=== PATIENT | female | born 1955 | race Caucasian/White ===

== ENCOUNTER → 2017-05-14 08:09 | Outpatient (CLI) | payer BC, SELFPAY ==
[2017-05-14 08:50] LABS: Absolute Lymphocyte Count 1.97 X10^3/ul (0.83-4.51); Absolute Neutrophil Count 2.8 X10^3/uL (2.0-7.7); Basophil# 0.02 X10^3/uL; Basophil% 0.4 % (0-1); Eosinophils% 3.5 % (0-5); Hematocrit 40.3 % (37-47); Hemoglobin 14.2 g/dl (12.0-15.0); Lymphocyte # 1.97 X10^3/ul (4.0); Lymphocyte % 34.9 % (19-41); Mean Corp Hgb Conc 35.2 g/gl (32-36); Mean Corpuscular Hgb 32.7 pg (27.0-32.0); Mean Corpuscular Volume 92.9 fL (81-99); Monocyte% 10.6 % (0-10); Neutrophil # 2.84 X10^3/uL (2.7-7.7); Neutrophil % 50.4 % (47-70); Platelet Count 184 K/mm3 (150-450); RBC Distribution Width CV 12.6 % (11.6-14.6); RBC Distribution Width SD 41.5 fl (35.1-43.9); Red Blood Count 4.34 M/mm3 (4.2-5.4); White Blood Count 5.6 K/mm3 (4.4-11.0)
[2017-05-14 08:51] LABS: POSITIVE COUNT NO; POSITIVE DIFFERENTIAL NO; POSITIVE MORPHOLOGY NO
[2017-05-14 09:45] LABS: ALB/GLOB Ratio 0.9 RATIO (0.9-2.4); AST(SGOT) 73 U/L (15-37); Alanine Aminotransfer ALT/SGPT 149 U/L (13-56); Albumin, Serum 3.4 g/dL (3.2-5.0); Alkaline Phosphatase 54 U/L (45-117); Anion Gap 7 (5-15); BUN 13 mg/dL (7-18); BUN/Creat Ratio 16.8 RATIO (10-20); Calcium,Total 9.3 mg/dL (8.5-10.1); Chloride 106 mmol/L (98-107); Cholesterol 158 mg/dL (200); Creatinine, Serum 0.77 mg/dL (0.55-1.02); EST Glomerular Filtration Rate 80 mL/min (>60); Est Glom Filt Rate - Afr Amer 97 mL/min (>60); Globulin 3.8 g/dL (2.2-4.2); Glucose 110 mg/dL (74-106); High Density Lipoprotein 55 mg/dL; Potassium 4.1 mmol/L (3.5-5.1); Protein, Total 7.2 g/dL (6.4-8.2); Sodium Level 140 mmol/L (136-145); Triglycerides 117 mg/dL; Very Low Density Lipoprotein 23 mg/dL (5-40)
== END ==
PROVIDERS: Family Provider Nurse Practitioner; PCP Nurse Practitioner; Visit Provider Nurse Practitioner
DX: Z12.31 Encounter for screening mammogram for malignant neoplasm of breast (principal); Z13.220 Encounter for screening for lipoid disorders; Z12.11 Encounter for screening for malignant neoplasm of colon; Z83.3 Family history of diabetes mellitus
CPT/HCPCS: 36415; 80053; 80061; 85025

== ENCOUNTER → 2017-05-21 12:24 | Outpatient (CLI) | payer BC, SELFPAY ==
--- NOTE | 2017-05-21 12:35 | HPBI_ITS ---
MAMMOGRAPHY - BILATERAL SCREENING REASON FOR EXAM: Female, 61 years old. Routine annual screening examination. PERTINENT HISTORY: Sister with breast cancer. TECHNIQUE: Digital bilateral breast marek (3D mammographic acquisition) in the CC and MLO projections. 2-D mediolateral oblique (MLO) and craniocaudad (CC) views of both breasts were obtained. CAD: Full Field Digital Mammography with Computer Added Detection was performed. COMPARISON: None. Baseline examination. FINDINGS: Breast Composition: The breasts are heterogeneously dense, which may obscure small masses. There are 3 densely calcified nodules in the deep mid medial portion of the left breast incomplete with calcified fibroadenomas. A focus of amorphous calcifications are seen in the deep upper medial portion of the right breast. A biopsy is recommended for further evaluation. No other significant abnormalities are identified. HPBI/SCREENING MAMM (CAD), BILAT IMPRESSION: Suspicious calcifications in the deep medial portion of the right breast as described. A biopsy is recommended. ASSESSMENT CATEGORY: BIRADS Category 4: Suspicious - Biopsy Should Be Considered. A letter regarding these results will be sent to the patient by the facility within 30 days. Approximately 10% of breast cancers are not detected by mammography. A normal mammogram should not delay biopsy of a clinically suspicious abnormality. [id number] Electronically Signed: Dean Jimenez MD at 10:03 EDT Tel [phone], Service support ,
== END ==
PROVIDERS: Family Provider Nurse Practitioner; PCP Nurse Practitioner; Visit Provider Nurse Practitioner
DX: R92.0 Mammographic microcalcification found on diagnostic imaging of breast (principal)
CPT/HCPCS: 77063; 77067

== ENCOUNTER → 2017-05-30 09:01 | Outpatient (CLI) | payer BC, SELFPAY ==
--- NOTE | 2017-05-30 09:02 | US_ITS ---
STUDY: ABDOMINAL ULTRASOUND - RIGHT UPPER QUADRANT REASON FOR VISIT: Female, 61 years old. Elevated liver enzymes. TECHNIQUE: Ultrasound evaluation of the right upper quadrant was performed with real-time and static mckeon-scale imaging. TECHNICAL QUALITY: Adequate. COMPARISON: None. FINDINGS: Liver: The liver measures 13.6 cm. There is increased echogenicity consistent with fatty infiltration. The bile ducts are within normal limits. There is hepatic color flow. The direction of portal flow is hepatopetal. There is no demonstrated mass lesion. Gallbladder: The patient is status post cholecystectomy. Common Bile Duct (C.B.D.): The common bile duct measures 5 mm. Pancreas: Normal size of the head, body and tail of the pancreas. There is normal echogenicity of the pancreas. There is no demonstrated pancreatic mass or cyst. Right Kidney: Normal size of the right kidney. The right kidney measures 10.5 cm. Normal renal cortex. There is a 1.1 x 0.9 cm simple cyst in the right kidney. There is a 3 mm nonobstructing right renal stone. There is no right hydronephrosis. US/Liver IMPRESSION: Fatty liver. No focal hepatic masses identified. 3 mm nonobstructing right renal stone. No hydronephrosis. Electronically Signed: Fidel Duval, at 16:52 EDT Tel , Service support ,
== END ==
PROVIDERS: Family Provider Nurse Practitioner; PCP Nurse Practitioner; Visit Provider Nurse Practitioner
DX: K76.0 Fatty (change of) liver, not elsewhere classified (principal); N20.0 Calculus of kidney; R74.8 Abnormal levels of other serum enzymes
CPT/HCPCS: 76705

== ENCOUNTER → 2017-06-02 10:37 | Outpatient (CLI) | payer BC, SELFPAY ==
--- NOTE | 2017-06-02 | BRBX_PTH ---
PATIENT: SANDER BISHOP LOC: [facility] U#:[id number] AGE/SX: 69/F ROOM: RE06/02/[address]: Dr. Scotty Hanson MD : 1955 BED: DIS: SPEC #: [id number] RECD: 06/02/17 13:46 STATUS: ALETHEA JW #: [id number] TRISTIN: 06/02/17 00:[address]: Scotty Hanson DEPT: SURGICAL PATHOLOGY RECD BY: Raghav Berg ENTERED: 06/02/17 13:46 SP TYPE: BREAST BX OTHR DR: MIKE Arroyo Tissues: Right breast, NOS Procedures: Surgery Specimen Level IV HEADER OPERATION: Right breast stereotactic biopsy PRE-OP DIAGNOSIS: Calcifications right breast upper inner TISSUE SUBMITTED: Right breast core biopsy ISCHEMIC TIME: 1 minute FIXATION TIME: 8 hours MICROSCOPIC DIAGNOSIS Right breast, upper inner calcification, stereotactic core biopsy: Hyalinized fibroadenoma with focal calcification. Negative for atypia or malignancy. LISANDRO:judith 06/03/17 COMMENT Correlation with clinical, radiologic findings and appropriate follow up are necessary. MICROSCOPIC DESCRIPTION Slides are reviewed. GROSS DESCRIPTION Received is one container labeled with the patient's name and not further designated. The specimen consists of multiple elongated fragments of sanchez-yellow fibroadipose tissue that in aggregate measure 4 x 3 x 0.3 cm. The entire specimen is submitted in two cassettes. / LISANDRO:judith 06/02/17 TC:1 CPT: 43920
--- NOTE | 2017-06-02 11:32 | OP.PCM_ITS ---
Problem List (1) Abnormal mammogram of right breast Status: Acute Report of Operation Date of Procedure: 06/02/17 Pre-Operative Diagnosis: Microcalcifications upper inner right breast Post-Operative Diagnosis: Same Surgery/Procedure Performed:: Stereotactic needle core biopsy upper inner right breast Description of Surgical Findings:: Timeout and informed consent was obtained. 61-year-old female was taken to the [facility] at room. Post prone on the table. Initially she was placed in a medial lateral view. The microcalcifications could not be readily identified. She was then placed in the cc view. The microcalcifications rapidly identified. Stereotactic images were obtained. Digital information was obtained on a single target site. The breast was prepped with Betadine. 1% lidocaine was used as a local anesthetic. A spinal needle was used to assist with penetration. A total of 10 cc was used. A small stab incision was created. An 8-gauge resolve needle was advanced to prefire depth. Prefire films were obtained demonstrating adequate localization. The device was fired. 6 cores were obtained. Specimen mammograms were obtained. 2 of the cores had microcalcifications clearly present. A marking clip was then left at the 12 o'clock position. She was released with advice. Pressure was held for hemostasis. Steri-Strips Telfa OpSite dressings applied. Blood loss was minimal. She tired procedure well. The specimens was submitted in formalin for analysis. Progress prognosis felt to be good. Scotty Hanson M.D., F.A.C.S. Type of Anesthesia:: Local
== END ==
PROVIDERS: Family Provider Nurse Practitioner; PCP Nurse Practitioner; Visit Provider Surgery
DX: D24.1 Benign neoplasm of right breast (principal); Z80.3 Family history of malignant neoplasm of breast
CPT/HCPCS: 19081; 88305; J7050

== ENCOUNTER → 2018-06-05 09:30 | Outpatient (CLI) | payer BC, SELFPAY ==
--- NOTE | 2018-06-05 09:32 | BI_ITS ---
MAMMOGRAPHY - BILATERAL SCREENING REASON FOR EXAM: Female, 62 years old. Routine annual screening examination. PERTINENT HISTORY: Sister with breast cancer. Remote right stereotactic breast biopsy. TECHNIQUE: Digital bilateral breast marek (3D mammographic acquisition) in the CC and MLO projections. 2-D mediolateral oblique (MLO) and craniocaudad (CC) views of both breasts were obtained. CAD: Full Field Digital Mammography with Computer Added Detection was performed. COMPARISON: Comparison is made with prior study of May 21, 2017. FINDINGS: Breast Composition: The breasts are heterogeneously dense, which may obscure small masses. There are no dominant masses or suspicious calcifications. Since prior study, the patient underwent a right stereotactic breast biopsy of the calcifications in the deep upper medial aspect of the right breast. The number of calcifications has decreased. Stable densely calcified nodules in the left breast suggestive of calcified fibroadenomas. No other significant abnormalities are identified. BI/SCREENING MAMM (CAD), BILAT IMPRESSION: Status post stereotactic breast biopsy of the cluster-like calcification in the upper medial aspect of the right breast. Yearly follow-up mammogram recommended. (A) ASSESSMENT CATEGORY: BIRADS Category 2: Benign. A letter regarding these results will be sent to the patient by the facility within 30 days. Approximately 10% of breast cancers are not detected by mammography. A normal mammogram should not delay biopsy of a clinically suspicious abnormality. [id number] Electronically Signed: Dean Jimenez, at 14:48 EDT , Service support ,
[2018-06-05 10:00] LABS: AST(SGOT) 17 U/L (15-37); Alanine Aminotransfer ALT/SGPT 23 U/L (13-56); Albumin, Serum 3.8 g/dL (3.2-5.0); Alkaline Phosphatase 55 U/L (45-117); Anion Gap 6 (5-15); BUN 17 mg/dL (7-18); BUN/Creat Ratio 22.3 RATIO (10-20); Calcium,Total 9.2 mg/dL (8.5-10.1); Chloride 107 mmol/L (98-107); Creatinine, Serum 0.76 mg/dL (0.55-1.02); EST Glomerular Filtration Rate 81 mL/min (>60); Est Glom Filt Rate - Afr Amer 99 mL/min (>60); Globulin 3.7 g/dL (2.2-4.2); Glucose 100 mg/dL (74-106); Potassium 3.9 mmol/L (3.5-5.1); Protein, Total 7.5 g/dL (6.4-8.2); Sodium Level 143 mmol/L (136-145)
[2018-06-06 13:45] LABS: AFP, Tumor Marker 3.6 ng/mL (0.0-8.3)
== END ==
PROVIDERS: Family Provider Nurse Practitioner; PCP Nurse Practitioner; Referring Provider Nurse Practitioner; Visit Provider Nurse Practitioner
DX: Z12.31 Encounter for screening mammogram for malignant neoplasm of breast (principal); Z80.3 Family history of malignant neoplasm of breast; K76.0 Fatty (change of) liver, not elsewhere classified
CPT/HCPCS: 36415; 77063; 77067; 80053; 82105

== ENCOUNTER → 2018-11-16 16:52 | Outpatient (CLI) | payer BC, SELFPAY ==
[2018-11-16 18:17] LABS: BUN 16 mg/dL (7-18); Creatinine, Serum 0.74 mg/dL (0.55-1.02); Glucose 95 mg/dL (74-106)
[2018-11-16 18:18] LABS: AST(SGOT) 19 U/L (15-37); Alanine Aminotransfer ALT/SGPT 23 U/L (13-56); Albumin, Serum 3.6 g/dL (3.2-5.0); Alkaline Phosphatase 54 U/L (45-117); Anion Gap 5 (5-15); BUN/Creat Ratio 21.5 RATIO (10-20); Calcium,Total 8.9 mg/dL (8.5-10.1); Chloride 107 mmol/L (98-107); EST Glomerular Filtration Rate 83 mL/min (>60); Est Glom Filt Rate - Afr Amer 101 mL/min (>60); Globulin 3.6 g/dL (2.2-4.2); Potassium 3.5 mmol/L (3.5-5.1); Protein, Total 7.2 g/dL (6.4-8.2); Sodium Level 141 mmol/L (136-145); T4 Free Direct 0.91 ng/dL (0.76-1.46); Thyroid Stim Hormone (TSH) 1.83 uIU/mL (0.358-3.74)
[2018-11-21 09:59] LABS: Anti-Thyroglobulin AB < 1.0 IU/mL (0.0-0.9); Thyroglobulin, Serum Qt. 17.1 ng/mL (1.5-38.5); Thyroid Peroxidase AB 9 IU/mL (0-34)
== END ==
PROVIDERS: Family Provider Family Medicine; PCP Family Medicine; Referring Provider Family Medicine; Visit Provider Family Medicine
DX: E01.0 Iodine-deficiency related diffuse (endemic) goiter (principal); K76.0 Fatty (change of) liver, not elsewhere classified
CPT/HCPCS: 36415; 80053; 84432; 84439; 84443; 86376; 86800

== ENCOUNTER → 2018-11-22 15:04 | Outpatient (CLI) | payer BC, SELFPAY ==
--- NOTE | 2018-11-22 15:11 | US_ITS ---
STUDY: THYROID ULTRASOUND REASON FOR EXAM: Female, 63 years old. Thyromegaly TECHNIQUE: Ultrasound evaluation of the thyroid was performed with real-time and static mckeon-scale imaging. COMPARISON: None. FINDINGS: RIGHT LOBE: The right lobe of the thyroid gland measures 4.1 x 1.3 x 1.4 cm. There is a homogeneous echotexture. There are no demonstrated solid, cystic or complex lesions. LEFT LOBE: The left lobe of the thyroid gland measures 5.0 x 1.9 x 1.7 cm. There is a homogeneous echotexture. 2.8 cm oval solid and cystic nodule in the left lobe for which ultrasound-guided biopsy is recommended. ISTHMUS: The isthmus measures 2 mm thick. . The regional lymph nodes are normal. US/Thyroid IMPRESSION: 2.8 cm dominant solid and cystic nodule in the left lobe for which ultrasound-guided biopsy is recommended. Electronically Signed: Yuri Beltrán MD at 9:15 EDT Tel , Service support ,
== END ==
PROVIDERS: Family Provider Family Medicine; PCP Family Medicine; Referring Provider Family Medicine; Visit Provider Family Medicine
DX: E01.0 Iodine-deficiency related diffuse (endemic) goiter (principal)
CPT/HCPCS: 76536

== ENCOUNTER → 2018-12-12 16:31 | Outpatient (CLI) | payer BC, SELFPAY ==
[2018-12-12 15:35] VITALS: BMI 25.8
== END ==
PROVIDERS: Family Provider Family Medicine; PCP Family Medicine; Referring Provider Surgery; Visit Provider Surgery
DX: R00.2 Palpitations (principal)

== ENCOUNTER → 2018-12-16 07:55 | Outpatient (CLI) | payer BC, SELFPAY ==
[2018-12-16 05:55] VITALS: BMI 25.8
--- NOTE | 2018-12-16 07:55 | ASPS_PTH ---
PATIENT: SANDER BISHOP LOC: [facility] U#:[id number] AGE/SX: 69/F ROOM: RE12/16/[address]: Dr. Scotty Hanson MD : 1955 BED: DIS: SPEC #: [id number] RECD: 12/18/18 07:38 STATUS: ALETHEA JW #: [id number] TRISTIN: 12/16/18 07:[address]: Scotty Hanson DEPT: CYTOLOGY RECD BY: Bhumi Abbasi ENTERED: 12/18/18 09:29 SP TYPE: ASPIRATION OTHR DR: Dr. Boyd Rocha MD Tissues: Thyroid gland, NOS Procedures: Special Stain Group II Cytology Other HEADER OPERATION: Left thyroid FNA PRE-OP DIAGNOSIS: Left thyroid nodule TISSUE SUBMITTED: Left thyroid 8 slides DIAGNOSIS CYTOLOGY Left thyroid nodule, FNA (smears): Atypical follicular cells of undetermined significance. Adequate for evaluation. SJ:judith 12/19/18 COMMENT Immediate cytologic evaluation to determine adequacy is not applicable. Correlation with clinical, radiologic findings and appropriate follow up are necessary. Case has been reviewed in consultation with Dr. Montanez who concurs with the above diagnosis. IDC:AM CYTOLOGY STUDY Slides are reviewed. CYTOLOGY GROSS Received are 8 smears labeled with the patient's name and designated per the requisition as left thyroid FNA. Submitted for staining. /CC:cc 12/18/18 TC:5 CPT: 83010
== END ==
PROVIDERS: Family Provider Family Medicine; PCP Family Medicine; Referring Provider Surgery; Visit Provider Surgery
DX: E04.1 Nontoxic single thyroid nodule (principal)
CPT/HCPCS: 88161; 88313

== ENCOUNTER 2019-03-05 08:44 | Observation (INO) | payer BC, SELFPAY ==
--- NOTE | 2018-12-22 01:31 | HP_ITS ---
ADDENDUM by Scotty Hanson MD on 12/27/18 at 1634 Addendum entered and electronically signed by Scotty Hanson MD 12/27/18 16:34: December 27, 2018 The patient has contacted the office. After thorough consideration she has elected to proceed with a total thyroidectomy. She is well aware that this will require lifelong thyroid replacement medication. She believes that it is more pertinent to proceed with a definitive one-time surgical procedure. Scotty Hanson M.D., F.A.C.S. Intake Chief Complaint: left thyroid FNA Allergies No Known Allergies Allergy (Verified 12/22/18 12:55) Medications calcium carb-magnesium oxide-vit D3 400 mg-167 mg-133 unit tablet 1 tab PO QDAY ea 05/30/17 [History Confirmed 12/22/18] mecobalamin (vitamin B12) 5,000 mcg disintegrating tablet 5,000 mcg PO QDAY ea 05/30/17 [History Confirmed 12/22/18] vitamin B complex tablet 1 tab PO QDAY 05/30/17 [History Confirmed 12/22/18] Assessment & Plan Problems 1. Left thyroid nodule E04.1 Plan - Scotty Hanson MD Today was a 30-minute [id number] consultative appointment. I described the final cytology of the left lobe nodule. In great detail we discussed the potential for a left thyroid lobectomy. We compared and contrasted that to a total thyroidectomy. She had an extensive amount of time to ask and have questions answered. We discussed potential operative risks including potential injury to recurrent laryngeal nerve or parathyroids. She understands that my recommendation at minimum is a left thyroid lobectomy and that would risk having to come back to surgery to do a completion right thyroid lobectomy. This would be in deference to a total thyroidectomy which that would mandate lifelong thyroid replacement. She will consider her treatment options. I have asked that she recontact us next week with a decision as to how she would like us to proceed even if it is without any surgery at all. I very much appreciate the kind opportunity of assisting with her surgical care Scotty Hanson MD, FACS 12/27/18 1634 <Electronically signed by Scotty bautista MD> Date _ Scotty Hanson MD cc: ~* Signed Intake Vital Signs 12/22/18 Height 5 ft 3.5 in 12/22/18 Weight: 146 lb 12/22/18 Body Mass Index (BMI) 25.4 12/22/18 Blood Pressure 186/81 H 12/22/18 Blood Pressure Location Rt brachial 12/22/18 Respiratory Rate 16 12/22/18 Pulse Rate 102 H 12/22/18 Pulse Source Monitor 12/22/18 Temperature 98.5 F 12/22/18 Pulse Ox 98 12/22/18 Oxygen Delivery Method room air Intake Visit Reasons: 1 W FU Chief Complaint: left thyroid FNA Marketing Segment Manager Required: No Is patient in pain?: No Allergies No Known Allergies Allergy (Verified 12/22/18 12:55) Medications calcium carb-magnesium oxide-vit D3 400 mg-167 mg-133 unit tablet 1 tab PO QDAY ea 05/30/17 [History Confirmed 12/22/18] mecobalamin (vitamin B12) 5,000 mcg disintegrating tablet 5,000 mcg PO QDAY ea 05/30/17 [History Confirmed 12/22/18] vitamin B complex tablet 1 tab PO QDAY 05/30/17 [History Confirmed 12/22/18] [facility] Medical History (Updated 12/12/18 @ 16:48 by Scotty Hanson MD) Left thyroid nodule (Acute) Arthritis (Acute) Elevated liver enzymes (Acute) Abnormal mammogram (Acute) Surgical History (Updated 12/16/18 @ 07:57 by Silvia Hammond) S/P cholecystectomy (Acute) Status post biopsy of thyroid gland (Acute ~12/2018) Family History (Updated 05/30/17 @ 08:19 by Barbara Emanuel) Mother Heart disease Father Kidney disease Sister Breast cancer Social History (Updated 12/22/18 @ 13:31 by Scotty Hanson MD) Smoking Status: Never smoker second hand exposure: No alcohol intake: never substance use type: does not use caffeine: Yes what type of physical activity do you participate in: none frequency: does not exercise seatbelt use: always HPI HPI HPI: SANDER BISHOP, is a 63 F who presents to the office today for HPI HPI Surgical H&P: Yes HPI: SANDER BISHOP, is a 63 F who presents to the office today for surgical follow-up status post ultrasound-guided fine needle aspiration left thyroid that are performed for her on December 16, 2018. She has a dominant 2.8 cm left thyroid nodule occupying the majority of the left lobe of the thyroid. Cytology demonstrates atypical follicular cells of undetermined significance. Her pre- interventional ultrasound did not demonstrate any nodules on the right Intake Visit Reasons: Thyroid Nodules Marketing Segment Manager Required: No Is patient in pain?: No Allergies No Known Allergies Allergy (Verified 12/12/18 15:36) Medications calcium carb-magnesium oxide-vit D3 400 mg-167 mg-133 unit tablet 1 tab PO QDAY ea 05/30/17 [History Confirmed 12/12/18] mecobalamin (vitamin B12) 5,000 mcg disintegrating tablet 5,000 mcg PO QDAY ea 05/30/17 [History Confirmed 12/12/18] vitamin B complex tablet 1 tab PO QDAY 05/30/17 [History Confirmed 12/12/18] PFSH Medical History Arthritis (Acute) Elevated liver enzymes (Acute) Abnormal mammogram (Acute) Surgical History S/P cholecystectomy (Acute) Family History Mother Heart disease Father Kidney disease Sister Breast cancer Social History (Updated 12/12/18 @ 16:51 by Scotty Hanson MD) Smoking Status: Never smoker second hand exposure: No alcohol intake: never substance use type: does not use caffeine: Yes what type of physical activity do you participate in: none frequency: does not exercise seatbelt use: always HPI HPI HPI: SANDER BISHOP, is a 63 F who presents to the office today for surgical consultation regarding a left thyroid nodule. The patient is referred by her primary care physician Dr Boyd Rocha and a written copy of my surgical consult recommendations will return to him This is a pleasant 63-year-old female. She is [place]. She presented to Dr. Boyd Rochaer on clinical exam was noted to have thyroid enlargement. Patient also notes that she knows that her sister has thyroid nodules. There is no complaint of thyroid cancer. The patient states that she has no pain or hoarseness. She claims that with talking she will get what feels like a tight fatigue. That is been ongoing for a year. Her weight is been steady. As of November 16, 2018 her TSH was 1.83 and free T4 0.91 with a thyroid peroxidase antibody at 9 and an anti-TG antibody at less than 1 and a thyroglobulin quantitative at 17.1 all which were normal. Thyroid ultrasound as noted below shows a 2.8 cm oval solid cystic nodule of the left thyroid with biopsy recommended [facility] [address] [place] [address] Thyroid MR#: [id number]:[id number] Name: SANDER BISHOP [facility] #:[id number] : 1955F 63 From: Yuri Beltrán MD PCP:Boyd Rocha MD Status:REG CLI Study:Thyroid Date of Exam:11/22/18 Exam#[id number] Ordering Dr: Boyd Rocha MD STUDY: THYROID ULTRASOUND REASON FOR EXAM: Female, 63 years old. Thyromegaly TECHNIQUE: Ultrasound evaluation of the thyroid was performed with real-time and static mckeon-scale imaging. COMPARISON: None. FINDINGS: RIGHT LOBE: The right lobe of the thyroid gland measures 4.1 x 1.3 x 1.4 cm. There is a homogeneous echotexture. There are no demonstrated solid, cystic or complex lesions. LEFT LOBE: The left lobe of the thyroid gland measures 5.0 x 1.9 x 1.7 cm. There is a homogeneous echotexture. 2.8 cm oval solid and cystic nodule in the left lobe for which ultrasound-guided biopsy is recommended. ISTHMUS: The isthmus measures 2 mm thick. . The regional lymph nodes are normal. US/Thyroid IMPRESSION: 2.8 cm dominant solid and cystic nodule in the left lobe for which ultrasound-guided biopsy is recommended. Electronically Signed: Yuri Beltrán MD at 9:15 EDT Tel , Service support , HPI HPI HPI: SANDER BISHOP, is a 63 F who presents to the office today for ROS General General: No weight change, appetite, fatigue, colon cancer, breast cancer or weakness HEENT HEENT: No difficulty swallowing, eye injury, eye surgery, swollen glands or hoarseness Endo Endocrine: No thyroid disease, diabetes mellitus, thyroid cancer, Hair loss, heat intolerance or cold intolerance Skin Skin: No rash or changing moles Breast Breast: No left breast lump, right breast lump, nipple discharge, breast pain, abnormal mammogram, abnormal US or breast enlargement Musc Musculoskeletal: No back problems, arthritis, rheumatoid arthritis, gout or joint pain Cardio Cardiovascular: No murmur, pacemaker, heart disease, atrial fibrillation, high blood pressure, heart attack, heart stent, palpitations, shortness of breat with exertion or chest pain Psych Psychiatric: No depression, anxiety or hearing voices Resp Respiratory: No shortness of breath, No sleep apnea, No cough, No COPD, No asthma, No emphysema, No wheezing Gastro Gastrointestinal: No abdominal pain, No nausea or vomiting, No diarrhea, No constipation, No blood in stool, No acid reflux, No hemorrhoids, No ulcers, No gallbladder problem, No black,tarry stools Ramos Hematologic: No blood thinners, No blood disorders, No bleeding, No anemia, No blood clots Neuro Neurologic: No system reviewed and no additional complaints, except as docu, No as per HPI, No abnormal walking, No abnormal hearing, No abnormal movements, No abnormal speech, No behavioral changes, No burning sensations, No confusion, No seizure-like activity, No unsteadiness, No dizziness, No localized weakness, No frequent falls, No headache(s), No lack of coordination, No loss of vision, No memory loss, No numbness, No other visual disturbances, No radiating pain, No restless legs, No sensory deficit, No fainting, No tingling, No tremor(s), No weakness, No other Exam Neck Carotids: normal carotid upstroke, no bruits Other: Enlargement of the left thyroid noted with swallowing. No cervical adenopathy, nontender [place] is negative Chest Chest palpation & inspection: normal inspection of the chest Breast Palpation: No nipple discharge Resp Effort & Inspection: normal respiratory effort Auscultation: clear to auscultation bilaterally Cardio Heart Sounds: no murmurs Other: Regular rate with occasional ectopic beat Assessment & Plan Problems 1. Left thyroid nodule E04.1 Plan The patient during my examination and interview suggested that she was having some palpitations and fluttering of her chest. She claims that this will frequently occur while she is trying to relax and fall asleep at night. I did detect occasional ectopic beat on auscultation. I recommended to her that we obtain a EKG prior to her departure. She was also noted to be mildly hypertensive. She has an upcoming appointment with Dr Boyd Rocha on December 16, 2018 and we will copy him on this note. Regarding her left thyroid nodule I recommend a ultrasound-guided fine-needle aspiration and I have discussed the technique, benefits, risks, alternatives. She has had an opportunity to ask and have questions answered. We will schedule and expedite this management. I very much appreciate the kind opportunity of assisting with her surgical care cc:Dr Boyd Hanson M.D., F.A.C.S. Orders Orders: EKG - SDC Today R00.2 Coding Level of Care Code 65483 Diagnoses Left thyroid nodule E04.1 12/12/181650<Electronically signed by Scotty Hanson MD> Date Scotty Hanson MD ROS General General: No weight change, appetite, fatigue, colon cancer, breast cancer or weakness HEENT HEENT: No difficulty swallowing, eye injury, eye surgery, swollen glands or hoarseness Endo Endocrine: No thyroid disease, diabetes mellitus, thyroid cancer, Hair loss, heat intolerance or cold intolerance Skin Skin: No rash or changing moles Breast Breast: No left breast lump, right breast lump, nipple discharge, breast pain, abnormal mammogram, abnormal US or breast enlargement Musc Musculoskeletal: No back problems, arthritis, rheumatoid arthritis, gout or joint pain Cardio Cardiovascular: No murmur, pacemaker, heart disease, atrial fibrillation, high blood pressure, heart attack, heart stent, palpitations, shortness of breat with exertion or chest pain Psych Psychiatric: No depression, anxiety or hearing voices Resp Respiratory: No shortness of breath, No sleep apnea, No cough, No COPD, No asthma, No emphysema, No wheezing Gastro Gastrointestinal: No abdominal pain, No nausea or vomiting, No diarrhea, No constipation, No blood in stool, No acid reflux, No hemorrhoids, No ulcers, No gallbladder problem, No black,tarry stools Ramos Hematologic: No blood thinners, No blood disorders, No bleeding, No anemia, No blood clots Neuro Neurologic: No weakness Exam Chest Breast Palpation: No nipple discharge Cardio Heart Sounds: no murmurs Assessment & Plan Problems 1. Left thyroid nodule E04.1 Plan Today was a 30-minute [id number]-tu-okqd consultative appointment. I described the final cytology of the left lobe nodule. In great detail we discussed the potential for a left thyroid lobectomy. We compared and contrasted that to a total thyroidectomy. She had an extensive amount of time to ask and have questions answered. We discussed potential operative risks including potential injury to recurrent laryngeal nerve or parathyroids. She understands that my recommendation at minimum is a left thyroid lobectomy and that would risk having to come back to surgery to do a completion right thyroid lobectomy. This would be in deference to a total thyroidectomy which that would mandate lifelong thyroid replacement. She will consider her treatment options. I have asked that she recontact us next week with a decision as to how she would like us to proceed even if it is without any surgery at all. I very much appreciate the kind opportunity of assisting with her surgical care Scotty Hanson MD, FACS Coding Level of Care Code Off vis,est,level 3 Diagnoses Left thyroid nodule E04.1 12/22/18 1331 <Electronically signed by Scotty bautista MD> Date _ Scotty Hanson MD I have re-examined the patient. There are no clinical changes since date of exam.
[2018-12-22 13:31] VITALS: BMI 25.8
[2019-01-29 15:24] VITALS: BMI 25.8
--- NOTE | 2019-02-28 09:29 | EKG12_ITS ---
Test Reason : PRE-OP Blood Pressure : / mmHG Vent. Rate : 076 BPM Atrial Rate : 076 BPM P-R Int : 112 ms QRS Dur : 092 ms QT Int : 388 ms P-R-T Axes : -27 040 060 degrees QTc Int : 436 ms Normal sinus rhythm Normal ECG Confirmed by LILLIAM SANCHEZ ([id number]), video tape editor SARAH WELDON ([id number]) on 02/28/2019 12:52:56 PM Referred By: Scotty Hanson Confirmed By:LILLIAM SANCHEZ
[2019-02-28 10:14] LABS: Hematocrit 41.5 % (37-47); Hemoglobin 14.3 g/dL (12.0-15.0); Mean Corp Hgb Conc 34.5 g/dL (32-36); Mean Corpuscular Hgb 31.6 pg (27.0-32.0); Mean Corpuscular Volume 91.8 fL (81-99); Mean Platelet Vol. 10.4 fl (6.2-12.0); Platelet Count 210 K/mm3 (150-450); RBC Distribution Width CV 12.3 % (11.6-14.6); RBC Distribution Width SD 41.9 fl (35.1-43.9); Red Blood Count 4.52 M/mm3 (4.2-5.4); White Blood Count 6.2 K/mm3 (4.4-11.0)
[2019-02-28 11:03] LABS: Anion Gap 6 (5-15); BUN 12 mg/dL (7-18); BUN/Creat Ratio 15.1 RATIO (10-20); Chloride 105 mmol/L (98-107); EST Glomerular Filtration Rate 77 mL/min (>60); Est Glom Filt Rate - Afr Amer 93 mL/min (>60); Glucose 105 mg/dL (74-106); Phosphorus 4.3 mg/dL (2.5-4.9); Potassium 3.7 mmol/L (3.5-5.1); Sodium Level 140 mmol/L (136-145)
[2019-03-05] VITALS (12 sets, daily range): BP systolic 140–168; BP diastolic 60–82; PULSE 63–76; RESP 15–17; TEMP 36.4–36.8; O2SAT 93–100; BMI 25.4
--- NOTE | 2019-03-05 | THYROID_PTH ---
PATIENT: SANDER BISHOP LOC: MS3 U#:[id number] AGE/SX: 63/F ROOM: MS321 RE03/05/[address]: Dr. Scotty Hanson MD : 1955 BED: 1 DIS: 03/06/2019 SPEC #: [id number] RECD: 03/05/19 12:10 STATUS: ALETHEA RERhonda #: [id number] TRISTIN: 03/05/19 00:[address]: Scotty Hanson DEPT: SURGICAL PATHOLOGY RECD BY: Raghav Berg ENTERED: 03/05/19 12:11 SP TYPE: THYROID OTHR DR: Dr. Boyd Rocha MD Tissues: Thyroid gland, NOS Procedures: Surgery Specimen Level V HEADER OPERATION: Total thyroidectomy PRE-OP DIAGNOSIS: Left thyroid nodule E04.1 TISSUE SUBMITTED: Total thyroid, suture herron anterior superior aspect of left lobe of thyroid MICROSCOPIC DIAGNOSIS Thyroid, total thyroidectomy: Colloid nodule with focal adenomatous change. Two out of two lymph nodes with no pathologic change. See comment. AM:judith 03/08/19 COMMENT Immunohistochemistry ([id number]) supports the above diagnosis. MICROSCOPIC DESCRIPTION Slides are reviewed. GROSS DESCRIPTION Received in fixative is one container labeled with the patient's name and designated total thyroid. The specimen consists of a total thyroidectomy specimen weighing 9 gm. The right lobe measures 3 x 2 x 1.2 cm and the left lobe measures 4 x 2 x 1.5 cm and the isthmus measures 1 x 1 x 0.3 cm. The specimen is oriented by a suture marking anterior-superior portion of the left thyroid lobe. No external parathyroid tissue is identified. The specimen is inked as follows: posterior surface right lobe, left lobe and isthmus - black, anterior surface right lobe - blue, anterior surface left lobe - green, anterior surface isthmus - yellow. Sections of the isthmus and right lobe do not reveal any mass lesion. Sections of the left lobe reveal a sanchez, solid nodule in the middle and lower portion of the left lobe measuring 2.5 x 2 x 1.3 cm. The entire specimen is submitted in nine cassettes as follows: 1 - isthmus, 2-4 - right lobe, 5-9 - left lobe. / LISANDRO:judith 03/06/19 TC:1 CPT: 16498
--- NOTE | 2019-03-05 | IMM_PTH ---
PATIENT: SANDER BISHOP LOC: MS3 U#:[id number] AGE/SX: 63/F ROOM: OR321 RE03/05/[address]: Dr. Scotty Hanson MD : 1955 BED: 1 DIS: 03/06/2019 SPEC #: [id number] RECD: 03/08/19 12:01 STATUS: ALETHEA REQ #: [id number] TRISTIN: 03/05/19 00:[address]: Scotty Hanson DEPT: IMMUNOHISTOCHEMISTRY RECD BY: Marietta José ENTERED: 03/08/19 12:02 SP TYPE: IMMUNO OTHR DR: Dr. Boyd Rocha MD Tissues: Thyroid gland, NOS Procedures: HBME (initial) CD56 (add) CK19 (add) GAL-3 (add) PHYSICIAN & INSTITUTION [place] [id number] SPECIMEN INFORMATION: Tissue Source: Total thyroid Clinical Info: Left thyroid nodule Specimen Number: [id number] #7 CPT code: 17963, 77244 x3 METHODOLOGY: Deparaffinized sections of prefer/formalin-fixed tissue or PAP/DQ stained slides are incubated with monoclonal/polyclonal antibodies/oligonucleotide probes. Localization is made via biotin free immunoperoxidase method. Appropriate controls are performed and reacted as expected. Results on target cell population are indicated in the following table: RESULTS: ANTIBODY / CLONE RESULT Block 7 HBME1 (HBME-1) negative CK19 (A53-B/A2.26) positive GAL3 (9C4) negative CD56 (123C3.D5) positive These tests were developed and their performance characteristics determined by [facility]. They may not have been cleared or approved by the U.S. Food and Drug Administration. The FDA has determined that such clearance or approval is not necessary. The above immunohistochemical/dualISH markers are ordered and reviewed by the Pathologist. INTERPRETATION: Thyroid, total thyroidectomy: Consistent with colloid nodule. AM:judith 03/09/19
[2019-03-05] MEDS: Lactated Ringers 1,000 ML 75 ML IV (05:57)
[2019-03-05] MEDS: Bupivacaine Mpf 0.5% 30 ML VIAL (08:36)
--- NOTE | 2019-03-05 08:40 | OP.PCM_ITS ---
Problem List (1) Left thyroid nodule Status: Acute Report of Operation Date of Procedure: 03/05/19 Pre-Operative Diagnosis: Atypical follicular lesion left thyroid Post-Operative Diagnosis: Same Surgery/Procedure Performed:: Total thyroidectomy Description of Surgical Findings:: Timeout and informed consent was obtained. 63-year-old female was taken to the operating placement table underwent general anesthesia. Clean case no antibiotics required. Head of bed was gently elevated. The neck was sterilely prepped and draped. A transverse suprasternal incision was created and sharp d issection carried down through the platysma. Platysmal flaps were raised. Strap muscles were incised vertically. The left lobe was addressed first. Blunt dissection was used and then harmonic scalpel was used for hemostasis. The superior pole the left lobe was carefully freed the superior pole vessels secured with harmonic scalpel. Then upon elevating the middle portion of the gland that is a large cystic solid lesion was able to be pulled up into the wound. Careful dissection was then performed upon the posterior aspect of the gland and the parathyroid inferiorly on the left was identified and protected. The course of the recurrent laryngeal nerve was identified and protected. The gland was dissected off the anterior surface of the trachea with harmonic scalpel. Attention was now drawn to the right lobe. Similar procedure was performed. The recurrent laryngeal nerve on the right was clearly identified and protected. Superior parathyroid on the right was identified and protected. The gland was completely resected off the anterior surface of the trachea. There is a little bit of tracheal tissue on the right that was close to the Dermotic that I secured with a 4-0 Vicryl [id number] suture. Everything was dry and intact. The wounds were irrigated. They were aspirated free. Palpation failed to reveal any masses or nodules. There was no gross adenopathy. Fibular was placed on each side of the neck. The strap muscles were approximated with simple 3-0 Vicryl sutures. The platysma was approximated with the same. The skin edges approximated opted 5-0 Vicryl subdermal stitches. The pau-incisional was anesthetized with 9 cc of 0.5% Marcaine. Surgical glue was applied followed by Telfa and tape dressings. Sponge and instrument and needle counts were reported to the surgeon to be correct. Specimen total thyroid with a suture marking the anterior superior aspect of the left lobe. Drains none. Blood loss minimal. Scotty Hanson M.D., F.A.C.S. Type of Anesthesia:: General Anesthesiologist: Sammie Charles
--- NOTE | 2019-03-05 08:40 | PCM.DC.GS ---
<Scotty Hanson - Last Filed: 03/05/19 08:40> Discharge Diet: Light diet - advance as tolerated - if you have questions about your diet instructions, please talk to you doctor. Discharge Activity: May Not Drive - for 1 week or while taking narcotic pain medicine. May shower in (days): 1 Lifting Restrictions: 10 pounds Call your doctor if your incision/area has: Continuous Slow Oozing, Sudden Increased Bleeding, Increased Pain/ Swelling, Increased Redness, Foul Smelling Discharge Call your doctor if you observe: Fever of 101 or Higher Suture Line Care: Avoid Pulling/Pushing, Avoid Pinching/Bending Additional Dressing/Incision Instructions:: Dressing may be removed on Tuesday and you may shower Allergies/Adverse Reactions: Allergies No Known Allergies Allergy (Verified 03/05/19 05:44) Medications to take at Discharge the A.G.E. pill 2 cap PO BID 01/29/19 Siel 2 cap PO BID 02/26/19 Hydrocodone Bitart/Apap 5-325 [[place] 5MG-325MG] 1 tab PO Q6H PRN PRN 2 Days #5 tab 03/05/19 Levothyroxine [Synthroid] 88 mcg PO DAILY #90 tab 03/05/19 Calcitriol [Rocaltrol] 0.25 mcg PO DAILY 7 Days #7 cap 03/06/19 The following prescriptions were given: Hydrocodone Bitart/Apap 5-325 [[place] 5MG-325MG] 1 tab PO Q6H PRN PRN 2 Days #5 tab PRN Reason: Pain Transmission Status: Received by [facility] Calcitriol [Rocaltrol] 0.25 mcg PO DAILY 7 Days #7 cap Transmission [facility]: [facility] Levothyroxine [Synthroid] 88 mcg PO DAILY #90 tab Transmission Status: [facility] Orders to be completed after discharge: 12 Lead EKG [CVS] Time Frame: 02/26/19, Facility: [facility], Location: Cardiovascular Services Basic Metabolic Profile (BMP) Time Frame: 02/26/19, Facility: [facility], Location: Laboratory CBC-Complete Blood Cnt No Diff Time Frame: 02/26/19, Facility: [facility], Location: Laboratory Phosphorus Time Frame: 02/26/19, Facility: [facility], Location: Laboratory Primary Care Physician: Boyd Rocha MD [Primary Care Provider] - Test Results: Test results from this visit will be discussed in further detail at your follow-up appointment, if applicable. Please Follow Up With: Scotty Hanson MD - [phone] When: Call to make an appointment to be seen in about 10 days. <Priscilla Christian - Last Filed: 03/06/19 07:11> Additional Instructions: Please take extra strength TUMs 2 tablets 3 times per day for 7 days Test Results: Test results from this visit will be discussed in further detail at your follow-up appointment, if applicable.
[2019-03-05] MEDS: 0.9% Saline Lock 10 ML Syringe IV (12:53)
[2019-03-05] MEDS: Ondansetron 4 MG/2 ML Vial IV (12:53)
[2019-03-05 16:15] LABS: Calcium,Total 8.4 mg/dL (8.5-10.1)
[2019-03-05] MEDS: Acetaminophen 325 MG Tablet 650 MG PO (17:17)
[2019-03-05] MEDS: Calcium Carbonate 500 MG Tablet 1000 MG PO (17:19)
--- NOTE | 2019-03-05 18:18 | PCM.PN.BLA ---
Progress Note Mild hypocalcemia, excellent clear voice Will treat with tums and rocaltrol and recheck in a.m. STROKE Vital Signs/Narrative: Vital Signs Temp Pulse Resp BP Pulse Ox 03/05/19 14:43 97.6 F L 72 16 144/72 H 94
[2019-03-05] MEDS: Calcitriol 0.25 MCG Capsule 0.5 MCG PO (18:36)
[2019-03-05] MEDS: Lactated Ringers 1,000 ML 30 ML IV (22:47)
[2019-03-06 03:29] VITALS: BP 147/75; PULSE 65; RESP 18; TEMP 36.6; O2SAT 98
[2019-03-06] MEDS: Levothyroxine 88 MCG Tablet PO (06:07)
--- NOTE | 2019-03-06 06:08 | PN.SURG_ITS ---
Subjective: Patient is doing well. No complaints. Quite comfortable - Physical Exam Vitals/I&O's: Vital Signs Temp Pulse Resp BP Pulse Ox 97.8 F 65 18 147/75 H 98 03/06/19 03:29 03/06/19 03:29 03/06/19 03:29 03/06/19 03:29 03/06/19 03:29 Oxygen Delivery Method Room Air Weight: 143 lb 15.39 oz Body Mass Index (BMI) 25.4 Intake and Output for Last 24 Hours 03/04/19 03/05/19 03/06/19 23:59 23:59 23:59 Intake Total 1450 / 1450 720 / 720 Output Total 600 / 600 800 / 800 Balance 850 / 850 -80 / -80 HEENT: - - Neck is supple, incision is clean and dry,chvostek is negative Laboratory Results 03/05/19 15:35: Calcium 8.4 L 03/06/19 05:05: Calcium Pending Current Medications Acetaminophen (Tylenol) 650 mg PO Q6H PRN PRN PRN Reason: Pain Score 1-10/10 Last Admin: 03/05/19 17:17 Dose: 650 mg Documented by: Calcitriol (Rocaltrol) 0.5 mcg PO DAILY [facility] Last Admin: 03/05/19 18:36 Dose: 0.5 mcg Documented by: Calcium Carbonate (Tums) 1,000 mg PO TIDCM [facility] Last Admin: 03/05/19 17:19 Dose: 1,000 mg Documented by: Lactated Ringer's () 1,000 mls @ 30 mls/hr IV .[id number] [facility] Last Admin: 03/05/19 22:47 Dose: 30 mls/hr Documented by: Sodium Chloride () 250 mls @ 15 mls/hr IV .[id number] PRN PRN Reason: Saline Flush Sodium Chloride () 250 mls @ 15 mls/hr IV .[id number] PRN PRN Reason: Additional IVPB Infusion Levothyroxine Sodium (Synthroid) 88 mcg PO DAILY@0600 [facility] Morphine Sulfate () 2 - 4 mg IV Q2H PRN PRN PRN Reason: Pain Score 1-10/10 Ondansetron HCl (Zofran) 4 mg IV Q8H PRN PRN PRN Reason: NAUSEA Last Admin: 03/05/19 12:53 Dose: 4 mg Documented by: Sodium Chloride () 10 - 40 ml IV UD PRN PRN Reason: SALINE FLUSH Last Admin: 03/05/19 12:53 Dose: 10 ml Documented by: Medical Necessity - Tobacco Use Smoking Status: Never smoker Tobacco Use: Non-smoker Assessment/Plan All Active Problems (Last Reviewed 01/29/19 @ 14:49 by Hayde Escobar) Left thyroid nodule (Acute) Abnormal mammogram of right breast (Acute) S/P cholecystectomy (Acute) Arthritis (Acute) Elevated liver enzymes (Acute) Abnormal mammogram (Acute) Awaiting calcium results and plan discharge today. Scotty Hanson M.D., F.A.C.S.
[2019-03-06 06:43] LABS: Calcium,Total 8.8 mg/dL (8.5-10.1)
[2019-03-06] MEDS: Calcium Carbonate 500 MG Tablet 1000 MG PO (08:27)
[2019-03-06] MEDS: Calcitriol 0.25 MCG Capsule 0.5 MCG PO (08:28)
[2019-03-06 08:32] VITALS: BP 152/63; PULSE 72; RESP 16; TEMP 36.8; O2SAT 97
== END 2019-03-06 09:31 | disposition home or self-care (01) ==
LOC: SDC 09:07 → MS3 09:07
PROVIDERS: Admitting Provider Surgery; Family Provider Family Medicine; PCP Family Medicine; Referring Provider Surgery; Visit Provider Surgery
PROC: (CPT 60240; principal; 2019-03-05 07:00)
DX: E04.1 Nontoxic single thyroid nodule (principal); M19.90 Unspecified osteoarthritis, unspecified site; I10 Essential (primary) hypertension; E83.51 Hypocalcemia
CPT/HCPCS: 60240; 36415; 80048; 82310; 84100; 85027; 88307; 88341; 88342; 93005; 96361; 96374; 99218; J7120; A4216; G0378; G0379; J2405

== ENCOUNTER → 2019-03-19 14:50 | Outpatient (CLI) | payer BC, SELFPAY ==
[2019-03-05 10:43] VITALS: BMI 25.4
[2019-03-19 15:26] LABS: Calcium,Total 9.1 mg/dL (8.5-10.1)
== END ==
PROVIDERS: Family Provider Family Medicine; PCP Family Medicine; Referring Provider Surgery; Visit Provider Surgery
DX: E89.0 Postprocedural hypothyroidism (principal)
CPT/HCPCS: 36415; 82310

== ENCOUNTER → 2019-03-26 11:37 | Outpatient (CLI) | payer BC, SELFPAY ==
[2019-03-05 10:43] VITALS: BMI 25.4
== END ==
PROVIDERS: Family Provider Family Medicine; PCP Family Medicine; Referring Provider Surgery; Visit Provider Surgery
DX: Z98.890 Other specified postprocedural states (principal)
CPT/HCPCS: 36415; 84443

== ENCOUNTER → 2019-04-23 15:09 | Outpatient (CLI) | payer BC, SELFPAY ==
[2019-03-05 10:43] VITALS: BMI 25.4
[2019-04-23 16:11] LABS: Thyroid Stim Hormone (TSH) 3.42 uIU/mL (0.358-3.74)
== END ==
PROVIDERS: PCP Family Medicine; Referring Provider Surgery; Visit Provider Surgery
DX: E89.0 Postprocedural hypothyroidism (principal)
CPT/HCPCS: 36415; 84443

== ENCOUNTER → 2019-04-27 07:41 | Outpatient (CLI) | payer BC, SELFPAY ==
[2019-03-05 10:43] VITALS: BMI 25.4
[2019-04-27 08:15] LABS: Anion Gap 6 (5-15); BUN 11 mg/dL (7-18); BUN/Creat Ratio 13.8 RATIO (10-20); Calcium,Total 9.5 mg/dL (8.5-10.1); Chloride 99 mmol/L (98-107); EST Glomerular Filtration Rate 77 mL/min (>60); Est Glom Filt Rate - Afr Amer 93 mL/min (>60); Glucose 131 mg/dL (74-106); Potassium 3.5 mmol/L (3.5-5.1); Sodium Level 136 mmol/L (136-145)
== END ==
PROVIDERS: PCP Family Medicine; Referring Provider Nurse Practitioner Adult Health; Visit Provider Nurse Practitioner Adult Health
DX: I10 Essential (primary) hypertension (principal)
CPT/HCPCS: 36415; 80048

== ENCOUNTER → 2019-07-25 10:11 | Outpatient (CLI) | payer BC, SELFPAY ==
[2019-03-05 10:43] VITALS: BMI 25.4
--- NOTE | 2019-07-25 10:12 | BI_ITS ---
MAMMOGRAPHY - BILATERAL SCREENING REASON FOR EXAM: Female, 63 years old. Routine annual screening examination. PERTINENT HISTORY: Sister with breast cancer. Prior right stereotactic breast biopsy. TECHNIQUE: Digital bilateral breast jez (3D mammographic acquisition) in the CC and MLO projections. 2-D mediolateral oblique (MLO) and craniocaudad (CC) views of both breasts were obtained. CAD: Full Field Digital Mammography with Computer Added Detection was performed. COMPARISON: Comparison is made with prior examination dated June 05, 2018 and May 22, 2007. FINDINGS: Breast Composition: The breasts are heterogeneously dense, which may obscure small masses. There are no dominant masses or suspicious calcifications. Stable calcified nodules in the deep central medial aspect of the left breast suggestive of a calcified fibroadenomas. A tissue clip marker is seen within a cluster of calcifications in the deep upper slightly medial aspect of the right breast. This is unchanged. Stable benign-appearing bilateral axillary lymph nodes. No other significant abnormalities are identified. There has been no significant change since the prior study. BI/SCREEN MAMM (CAD) W/JEZ BILAT IMPRESSION: Stable bilateral screening mammogram. Yearly follow-up mammogram recommended. (A) ASSESSMENT CATEGORY: BIRADS Category 2: Benign. A letter regarding these results will be sent to the patient by the facility within 30 days. Approximately 10% of breast cancers are not detected by mammography. A normal mammogram should not delay biopsy of a clinically suspicious abnormality. [id number] Electronically Signed: Dean Jimenez, at 11:17 EDT , Service support ,
== END ==
PROVIDERS: PCP Family Medicine; Referring Provider Family Medicine; Visit Provider Family Medicine
DX: Z12.31 Encounter for screening mammogram for malignant neoplasm of breast (principal); Z80.3 Family history of malignant neoplasm of breast
CPT/HCPCS: 77063; 77067

== ENCOUNTER → 2019-08-28 10:58 | Outpatient (CLI) | payer BC, SELFPAY ==
[2019-03-05 10:43] VITALS: BMI 25.4
[2019-08-28 11:01] LABS: Bacteria 0 SEEN /hpf (None Seen); Mucous, Urine 0 SEEN /hpf (<or=2+); Red Blood Cells-Urine 0 SEEN /hpf (0-5); White Blood Cells 0 SEEN /hpf (0-5)
[2019-08-28 12:22] LABS: Color, Urine Yellow (Yellow); Glucose, Dipstick Normal (Normal); Ketone-Dipstick Negative (Negative); Leukocyte Esterase-Dipstick Negative /ul (Negative); Nitrite-Dipstick Negative (Negative); Occult Blood-Urine Negative /ul (Negative); Protein-Dipstick Negative (Negative); Urine Bilirubin Dipstick Negative (Negative); Urine Clarity Sl. Cloudy (Clear); Urine Urobilinogen Normal (Normal)
[2019-08-28 12:38] LABS: Squamous Epithelial Cells - UA 0-5 SEEN /hpf (5-10)
[2019-08-28 12:50] LABS: ALB/GLOB Ratio 0.9 RATIO (0.9-2.4); AST(SGOT) 24 U/L (15-37); Alanine Aminotransfer ALT/SGPT 31 U/L (13-56); Albumin, Serum 3.9 g/dL (3.2-5.0); Alkaline Phosphatase 55 U/L (45-117); Anion Gap 7 (5-15); BUN 10 mg/dL (7-18); BUN/Creat Ratio 14.9 RATIO (10-20); Calcium,Total 9.5 mg/dL (8.5-10.1); Chloride 97 mmol/L (98-107); Creatinine, Serum 0.67 mg/dL (0.55-1.02); EST Glomerular Filtration Rate 93 mL/min (>60); Est Glom Filt Rate - Afr Amer 113 mL/min (>60); Globulin 4.2 g/dL (2.2-4.2); Glucose 103 mg/dL (74-106); Potassium 3.4 mmol/L (3.5-5.1); Protein, Total 8.1 g/dL (6.4-8.2); Sodium Level 134 mmol/L (136-145); Thyroid Stim Hormone (TSH) 8.48 uIU/mL (0.358-3.74)
== END ==
PROVIDERS: PCP Family Medicine; Referring Provider Family Medicine; Visit Provider Family Medicine
DX: E89.0 Postprocedural hypothyroidism (principal); I10 Essential (primary) hypertension
CPT/HCPCS: 36415; 80053; 81001; 84443

== ENCOUNTER → 2019-11-21 16:31 | Outpatient (CLI) | payer MEDICARE, SELFPAY ==
[2019-03-05 10:43] VITALS: BMI 25.4
[2019-11-21 19:37] LABS: ALB/GLOB Ratio 1.1 RATIO (0.9-2.4); AST(SGOT) 20 U/L (15-37); Alanine Aminotransfer ALT/SGPT 24 U/L (13-56); Albumin, Serum 3.9 g/dL (3.2-5.0); Alkaline Phosphatase 49 U/L (45-117); Anion Gap 6 (5-15); BUN 10 mg/dL (7-18); BUN/Creat Ratio 14.5 RATIO (10-20); Chloride 95 mmol/L (98-107); Creatinine, Serum 0.69 mg/dL (0.55-1.02); EST Glomerular Filtration Rate 91 mL/min (>60); Est Glom Filt Rate - Afr Amer 110 mL/min (>60); Globulin 3.6 g/dL (2.2-4.2); Glucose 118 mg/dL (74-106); Potassium 2.9 mmol/L (3.5-5.1); Protein, Total 7.5 g/dL (6.4-8.2); Sodium Level 133 mmol/L (136-145); T4 Free Direct 1.31 ng/dL (0.76-1.46); Thyroid Stim Hormone (TSH) 0.31 uIU/mL (0.358-3.74)
== END ==
PROVIDERS: PCP Family Medicine; Referring Provider Family Medicine; Visit Provider Family Medicine
DX: I10 Essential (primary) hypertension (principal); E89.0 Postprocedural hypothyroidism
CPT/HCPCS: 36415; 80053; 84439; 84443

== ENCOUNTER → 2019-11-26 15:51 | Outpatient (CLI) | payer MEDICARE, SELFPAY ==
[2019-03-05 10:43] VITALS: BMI 25.4
[2019-11-26 18:29] LABS: Anion Gap 4 (5-15); BUN 13 mg/dL (7-18); BUN/Creat Ratio 18.4 RATIO (10-20); Calcium,Total 9.3 mg/dL (8.5-10.1); Chloride 100 mmol/L (98-107); EST Glomerular Filtration Rate 89 mL/min (>60); Est Glom Filt Rate - Afr Amer 107 mL/min (>60); Glucose 94 mg/dL (74-106); Magnesium 2.1 mg/dL (1.6-2.6); Potassium 3.3 mmol/L (3.5-5.1); Sodium Level 136 mmol/L (136-145)
== END ==
PROVIDERS: PCP Family Medicine; Referring Provider Family Medicine; Visit Provider Family Medicine
DX: E87.6 Hypokalemia (principal)
CPT/HCPCS: 36415; 80048; 83735

== ENCOUNTER → 2019-12-07 08:02 | Outpatient (CLI) | payer MEDICARE, SELFPAY ==
[2019-12-05 11:19] VITALS: BMI 25.4
[2019-12-07 10:06] LABS: Potassium 2.7 mmol/L (3.5-5.1)
== END ==
PROVIDERS: PCP Family Medicine; Referring Provider Family Medicine; Visit Provider Family Medicine
DX: E87.6 Hypokalemia (principal)
CPT/HCPCS: 36415; 84132

== ENCOUNTER 2019-12-07 11:56 | Emergency (ER) | payer MEDICARE, SELFPAY ==
[2019-12-05 11:19] VITALS: BMI 25.4
[2019-12-07 11:58] VITALS: BP 147/77; PULSE 111; RESP 17; TEMP 36.5; O2SAT 98; BMI 25.0
--- NOTE | 2019-12-07 12:23 | EKG12_ITS ---
Test Reason : LOW POTASSIUM Blood Pressure : / mmHG Vent. Rate : 089 BPM Atrial Rate : 089 BPM P-R Int : 144 ms QRS Dur : 096 ms QT Int : 394 ms P-R-T Axes : -11 040 049 degrees QTc Int : 479 ms Normal sinus rhythm Normal ECG Confirmed by OBIE ROGERS, BRANT ([id number]), electronic news gathering editor TROY SHAW ([id number]) on 12/12/2019 8:39:19 AM Referred By: AP Confirmed By:BRANT RAGLAND MD
--- NOTE | 2019-12-07 12:42 | ED.VIS.GEN ---
History of Present Illness Informant: Patient Onset: Yesterday Context: Gradual Onset Timing: Continuous Quality: palpitations Location: chest Current Severity: Mild Maximum Severity: Mild Worsened by: nothing Relieved by: nothing Associated Symptoms: PVC's Narrative: 64-year-old female with a history of hypertension presents to the emergency department needing a dose of potassium. She has a history of hypokalemia. She is supposed to be on oral potassium replacement but she felt like it was giving her palpitations earlier this week therefore has not taken it for 3 days her primary ordered an outpatient lab draw this morning her potassium was low and she was sent into the emergency department for potassium replacement. Denies chest pain or shortness of breath. She is not lightheaded or dizzy. Denies any myalgias or arthralgias or fevers. Denies vomiting or diarrhea. Denies any other review of systems at this time. Prior similar symptoms: Yes Recent Illness/Hospitalization: No <Fei French - Last Filed: 12/07/19 13:54> <Gordon Alcantar - Last Filed: 12/07/19 21:49> Chief Complaint: Abn Labs Past Medical History Prior records reviewed: Yes Past Medical History: - - HTN Surgical History: noncontributory Lives: With Family Smoking Status: Never smoker <Fei French - Last Filed: 12/07/19 13:54> <Gordon Alcantar - Last Filed: 12/07/19 21:49> - Allergies and Home Meds Allergies/Adverse Reactions: Allergies No Known Allergies Allergy (Verified 12/07/19 11:58) Primary Care Physician: Boyd Rocha MD [Primary Care Provider] - 12/10/19 Review of Systems All systems negative except as indicated General: Denies: Chills, Fever, Sweats Eyes: Denies: Visual changes - bilaterally, Diplopia ENT: Denies: Rhinorrhea, Sore throat Cardiovascular: Reports: Palpitations. Denies: Chest pain, Heart racing Respiratory: Denies: Dyspnea, Cough, Dyspnea on exertion Gastrointestinal: Denies: Abdominal pain, Nausea, Vomiting, Diarrhea, Melena, Hematochezia Genitourinary: Denies: Dysuria, Hematuria, Frequency Musculoskeletal: Denies: Back pain, Extremity Pain Skin: Denies: Rash, Wounds Neurological: Denies: Headache, Weakness, Numbness <Fei French - Last Filed: 12/07/19 13:54> Physical Exam Vital Signs/Narrative: Vital Signs Temp Pulse Resp BP Pulse Ox 12/07/19 11:58 97.7 F L 111 H 17 147/77 H 98 Inital Vital Signs reviewed: Yes General: Well nourished, Well developed, No Acute Distress Head: Normocephalic, Atraumatic Eyes: Perrl, EOMI ENT: Moist mucous membranes, No rhinorrhea Neck: Supple, Nontender Cardiovascular: Regular rate, Regular rhythm, No murmurs Respiratory: No distress, CTA bilaterally, Chest nontender Abdomen: Soft, Nontender, Nondistended, Normal bowel sounds Back: Nontender, Normal Inspection Extremities: Nontender, No edema Skin: Normal color, No rash Neurological: Alert, Oriented x3, Cranial nerves II-XII grossly intact, Normal Strength, Normal Sensation Psychological: Normal affect, Normal Mood <Fei French - Last Filed: 12/07/19 13:54> Diagnostic/Tx/Re-eval - Rhythm Strip Rhythm Strip: Sinus Rhythm Rate: 89 Ectopy: None - EKG Initial EKG Interpretation: Sinus Rhythm, No Acute Injury Pattern Prior: Unchanged - Medical Decision Making Patient presents with a low potassium level sent in by her primary care physician for 1 dose of 40 mEq of IV potassium replacement. We did repeat a potassium here was 2.8. EKG was sinus rhythm no signs of ST segment or T wave changes no ectopy with normal intervals. Patient was given a dose of IV potassium she will continue her potassium replacement as prescribed by her primary care physician and will be discharged home to have rechecked on Tuesday <Fei French - Last Filed: 12/07/19 13:54> - Medical Decision Making Patient presents the emergency department for hypokalemia. This is a chronic problem for her. She has been having some palpitations so she quit taking her home potassium. The palpitations are not a new issue for her as well. EKG was obtained here which did not show any signs of arrhythmia or ischemia. Work-up showed her to be hypokalemic and this was replaced IV. She is to continue her home dosing. She is to follow-up with her PCP for repeat lab check. She otherwise has been stable throughout ED stay. Agree with above assessment plan by TIFFANIE. <Gordon Alcantar - Last Filed: 12/07/19 21:49> ED Disposition <Fei French - Last Filed: 12/07/19 13:54> <Gordon Alcantar - Last Filed: 12/07/19 21:49> - Plan for ED Patient: Disposition: Home or Assisted Living Diagnosis: Hypokalemia, PVC (premature ventricular contraction) Instructions: ED Potassium Deficiency Referrals: Boyd Rocha MD [Primary Care Provider] - 12/10/19
[2019-12-07] MEDS: Potassium Chloride 10mEq/100mL 10 MEQ/100 ML IV.SOLN. 100 MEQ IV BOLUS ×4 (12:52→16:03)
[2019-12-07 13:03] LABS: Absolute Lymphocyte Count 1.34 X10^3/uL (0.83-4.51); Absolute Neutrophil Count 5.2 X10^3/uL (2.0-7.7); Basophil# 0.02 X10^3/uL; Basophil% 0.3 % (0-1); Eosinophil# 0.04 X10^3/uL; Eosinophils% 0.5 % (0-5); Hematocrit 38.8 % (37-47); Lymphocyte # 1.34 X10^3/ul (4.0); Lymphocyte % 18.4 % (19-41); Mean Corp Hgb Conc 36.1 g/dL (32-36); Mean Corpuscular Hgb 32.1 pg (27.0-32.0); Mean Platelet Vol. 9.8 fl (6.2-12.0); Monocyte# 0.68 X10^3/uL; Monocyte% 9.3 % (0-10); NRBC Flagged by Analyzer 0 % (0-5); Neutrophil % 71.2 % (47-70); Platelet Count 220 K/mm3 (150-450); RBC Distribution Width CV 11.1 % (11.6-14.6); RBC Distribution Width SD 35.8 fl (35.1-43.9); Red Blood Count 4.36 M/mm3 (4.2-5.4); White Blood Count 7.3 K/mm3 (4.4-11.0)
[2019-12-07 13:16] LABS: Anion Gap 6 (5-15); BUN 12 mg/dL (7-18); BUN/Creat Ratio 17.8 RATIO (10-20); Calcium,Total 9.1 mg/dL (8.5-10.1); Chloride 94 mmol/L (98-107); Creatinine, Serum 0.68 mg/dL (0.55-1.02); EST Glomerular Filtration Rate 93 mL/min (>60); Est Glom Filt Rate - Afr Amer 112 mL/min (>60); Estimated Creatinine Clearance 71.22 ml/min; Glucose 109 mg/dL (74-106); Magnesium 1.9 mg/dL (1.6-2.6); Potassium 2.8 mmol/L (3.5-5.1); Sodium Level 132 mmol/L (136-145)
[2019-12-07 15:51] VITALS: BP 129/58; PULSE 73; RESP 18; O2SAT 98
== END 2019-12-07 17:33 | disposition home or self-care (01) ==
PROVIDERS: Emergency Provider Physician Assistant Medical; PCP Family Medicine
DX: E87.6 Hypokalemia (principal); I49.3 Ventricular premature depolarization; I10 Essential (primary) hypertension
CPT/HCPCS: 36415; 80048; 83735; 84132; 85025; 93005; 96365; 96366; 99284; A4216

== ENCOUNTER → 2019-12-11 09:16 | Outpatient (CLI) | payer MEDICARE, SELFPAY ==
[2019-12-07 11:58] VITALS: BMI 25.0
[2019-12-11 10:32] LABS: Potassium 3.1 mmol/L (3.5-5.1)
== END ==
PROVIDERS: PCP Family Medicine; Referring Provider Family Medicine; Visit Provider Family Medicine
DX: E87.6 Hypokalemia (principal)
CPT/HCPCS: 36415; 84132

== ENCOUNTER → 2019-12-19 | Outpatient (CLI) | payer MEDICARE, SELFPAY ==
[2019-12-07 11:58] VITALS: BMI 25.0
[2019-12-19 18:29] LABS: Anion Gap 4 (5-15); BUN 15 mg/dL (7-18); BUN/Creat Ratio 23.1 RATIO (10-20); Calcium,Total 8.9 mg/dL (8.5-10.1); Chloride 96 mmol/L (98-107); Creatinine, Serum 0.65 mg/dL (0.55-1.02); EST Glomerular Filtration Rate 97 mL/min (>60); Est Glom Filt Rate - Afr Amer 118 mL/min (>60); Glucose 85 mg/dL (74-106); Potassium 3.6 mmol/L (3.5-5.1); Sodium Level 132 mmol/L (136-145)
== END | disposition home or self-care (01) ==
LOC: MFPLAB 15:59
PROVIDERS: PCP Family Medicine; Referring Provider Family Medicine; Visit Provider Family Medicine
DX: E87.1 Hypo-osmolality and hyponatremia (principal)
CPT/HCPCS: 36415; 80048

== ENCOUNTER → 2020-01-01 08:59 | Outpatient (CLI) | payer MEDICARE, SELFPAY ==
[2019-12-07 11:58] VITALS: BMI 25.0
[2020-01-01 10:14] LABS: Anion Gap 7 (5-15); BUN 12 mg/dL (7-18); BUN/Creat Ratio 18.2 RATIO (10-20); Chloride 99 mmol/L (98-107); Creatinine, Serum 0.66 mg/dL (0.55-1.02); EST Glomerular Filtration Rate 95 mL/min (>60); Est Glom Filt Rate - Afr Amer 116 mL/min (>60); Glucose 101 mg/dL (74-106); Potassium 3.8 mmol/L (3.5-5.1); Sodium Level 134 mmol/L (136-145)
== END ==
PROVIDERS: PCP Family Medicine; Referring Provider Family Medicine; Visit Provider Family Medicine
DX: I10 Essential (primary) hypertension (principal)
CPT/HCPCS: 36415; 80048

== ENCOUNTER → 2020-01-10 10:51 | Outpatient (CLI) | payer MEDICARE, SELFPAY ==
[2020-01-10 13:00] LABS: Anion Gap 5 (5-15); BUN 15 mg/dL (7-18); BUN/Creat Ratio 18.2 RATIO (10-20); Calcium,Total 8.7 mg/dL (8.5-10.1); Chloride 101 mmol/L (98-107); Creatinine, Serum 0.82 mg/dL (0.55-1.02); EST Glomerular Filtration Rate 74 mL/min (>60); Est Glom Filt Rate - Afr Amer 90 mL/min (>60); Glucose 99 mg/dL (74-106); Potassium 3.8 mmol/L (3.5-5.1); Sodium Level 136 mmol/L (136-145)
== END ==
PROVIDERS: PCP Family Medicine; Referring Provider Family Medicine; Visit Provider Family Medicine
DX: I10 Essential (primary) hypertension (principal)
CPT/HCPCS: 36415; 80048

== ENCOUNTER → 2020-04-04 10:07 | Outpatient (CLI) | payer MEDICARE, SELFPAY ==
[2020-04-04 10:10] LABS: Bacteria 0 SEEN /hpf (None Seen); Mucous, Urine 0 SEEN /hpf (<or=2+); Red Blood Cells-Urine 0 SEEN /hpf (0-5); White Blood Cells 0 SEEN /hpf (0-5)
[2020-04-04 12:21] LABS: Absolute Lymphocyte Count 1.68 X10^3/uL (0.83-4.51); Absolute Neutrophil Count 3.5 X10^3/uL (2.0-7.7); Basophil# 0.02 X10^3/uL; Basophil% 0.3 % (0-1); Eosinophils% 1.7 % (0-5); Hematocrit 38.6 % (37-47); Hemoglobin 12.9 g/dL (12.0-15.0); Lymphocyte # 1.68 X10^3/ul (4.0); Lymphocyte % 28.7 % (19-41); Mean Corp Hgb Conc 33.4 g/dL (32-36); Mean Corpuscular Hgb 30.9 pg (27.0-32.0); Mean Corpuscular Volume 92.3 fL (81-99); Mean Platelet Vol. 10.4 fl (6.2-12.0); Monocyte# 0.54 X10^3/uL; Monocyte% 9.2 % (0-10); NRBC Flagged by Analyzer 0 % (0-5); Neutrophil # 3.51 X10^3/uL (2.7-7.7); Neutrophil % 59.9 % (47-70); Platelet Count 223 K/mm3 (150-450); RBC Distribution Width CV 11.9 % (11.6-14.6); RBC Distribution Width SD 39.9 fl (35.1-43.9); Red Blood Count 4.18 M/mm3 (4.2-5.4); White Blood Count 5.9 K/mm3 (4.4-11.0)
[2020-04-04 12:35] LABS: Color, Urine Straw (Yellow); Glucose, Dipstick Normal (Normal); Ketone-Dipstick Negative (Negative); Leukocyte Esterase-Dipstick Negative /ul (Negative); Nitrite-Dipstick Negative (Negative); Occult Blood-Urine Negative /ul (Negative); Protein-Dipstick Negative (Negative); Specific Gravity, Urine 1.005 (1.002-1.030); Urine Bilirubin Dipstick Negative (Negative); Urine Clarity Sl. Cloudy (Clear); Urine Urobilinogen Normal (Normal)
[2020-04-04 12:42] LABS: Squamous Epithelial Cells - UA 0-5 SEEN /hpf (5-10)
[2020-04-04 12:55] LABS: AST(SGOT) 15 U/L (15-37); Alanine Aminotransfer ALT/SGPT 24 U/L (13-56); Albumin, Serum 3.5 g/dL (3.2-5.0); Alkaline Phosphatase 39 U/L (45-117); Anion Gap 6 (5-15); BUN 11 mg/dL (7-18); Calcium,Total 8.8 mg/dL (8.5-10.1); Chloride 102 mmol/L (98-107); Cholesterol 163 mg/dL (200); Creatinine, Serum 0.69 mg/dL (0.55-1.02); EST Glomerular Filtration Rate 91 mL/min (>60); Est Glom Filt Rate - Afr Amer 110 mL/min (>60); Globulin 3.5 g/dL (2.2-4.2); Glucose 117 mg/dL (74-106); High Density Lipoprotein 60 mg/dL; Potassium 3.4 mmol/L (3.5-5.1); Sodium Level 135 mmol/L (136-145); T4 Free Direct 1.43 ng/dL (0.76-1.46); Thyroid Stim Hormone (TSH) 0.22 uIU/mL (0.358-3.74); Triglycerides 123 mg/dL; Very Low Density Lipoprotein 25 mg/dL (5-40)
== END ==
PROVIDERS: PCP Family Medicine; Referring Provider Family Medicine; Visit Provider Family Medicine
DX: I10 Essential (primary) hypertension (principal); E89.0 Postprocedural hypothyroidism; R73.02 Impaired glucose tolerance (oral)
CPT/HCPCS: 36415; 80053; 80061; 81001; 83036; 84439; 84443; 85025

== ENCOUNTER → 2020-10-01 09:34 | Outpatient (CLI) | payer MEDICARE, SELFPAY ==
[2020-10-01 10:53] LABS: Hemoglobin A1c 5.9 % (3.8-5.6)
[2020-10-01 10:57] LABS: AST(SGOT) 20 U/L (15-37); Alanine Aminotransfer ALT/SGPT 27 U/L (13-56); Albumin, Serum 3.8 g/dL (3.2-5.0); Alkaline Phosphatase 48 U/L (45-117); Anion Gap 3 (5-15); BUN 12 mg/dL (7-18); BUN/Creat Ratio 17.1 RATIO (10-20); Calcium,Total 9.1 mg/dL (8.5-10.1); Chloride 99 mmol/L (98-107); EST Glomerular Filtration Rate 89 mL/min (>60); Est Glom Filt Rate - Afr Amer 107 mL/min (>60); Globulin 3.8 g/dL (2.2-4.2); Glucose 107 mg/dL (74-106); Potassium 4.3 mmol/L (3.5-5.1); Protein, Total 7.6 g/dL (6.4-8.2); Sodium Level 132 mmol/L (136-145); T4 Free Direct 1.17 ng/dL (0.76-1.46); Thyroid Stim Hormone (TSH) 2.77 uIU/mL (0.358-3.74)
== END ==
PROVIDERS: PCP Family Medicine; Visit Provider Family Medicine
DX: R73.02 Impaired glucose tolerance (oral) (principal); E89.0 Postprocedural hypothyroidism
CPT/HCPCS: 36415; 80053; 83036; 84439; 84443

== ENCOUNTER → 2020-10-16 08:37 | Outpatient (CLI) | payer MEDICARE, SELFPAY ==
[2020-10-16 10:31] LABS: Anion Gap 8 (5-15); BUN 17 mg/dL (7-18); BUN/Creat Ratio 24.2 RATIO (10-20); Calcium,Total 9.1 mg/dL (8.5-10.1); Chloride 100 mmol/L (98-107); EST Glomerular Filtration Rate 89 mL/min (>60); Est Glom Filt Rate - Afr Amer 107 mL/min (>60); Glucose 80 mg/dL (74-106); Potassium 3.7 mmol/L (3.5-5.1); Sodium Level 137 mmol/L (136-145)
== END ==
PROVIDERS: PCP Family Medicine; Referring Provider Family Medicine; Visit Provider Family Medicine
DX: E87.1 Hypo-osmolality and hyponatremia (principal)
CPT/HCPCS: 36415; 80048

== ENCOUNTER → 2020-10-31 09:07 | Outpatient (CLI) | payer MEDICARE, SELFPAY ==
--- NOTE | 2020-10-31 09:08 | BI_ITS ---
MAMMOGRAPHY - BILATERAL SCREENING REASON FOR EXAM: Female, 65 years old. Routine annual screening examination. PERTINENT HISTORY: Sister with breast cancer. Prior right stereotactic breast biopsy. TECHNIQUE: Digital bilateral breast jez (3D mammographic acquisition) in the CC and MLO projections. 2-D mediolateral oblique (MLO) and craniocaudad (CC) views of both breasts were obtained. CAD: Full Field Digital Mammography with Computer Added Detection was performed. COMPARISON: Comparison is made with prior study dated 07/25/2019 and 06/05/2018. FINDINGS: Breast Composition: The breasts are heterogeneously dense, which may obscure small masses. There are no dominant masses or suspicious calcifications. Stable densely calcified fibroadenomas in the upper medial aspect of the left breast. Interstitial clip markers once again seen within the cluster of calcifications in the deep upper slightly medial aspect of the right breast. This is suggestive of a calcifying fibroadenoma. No other significant abnormalities are identified. There has been no significant change since the prior study. BI/SCRN MAMM (CAD)W/JEZ BILAT IMPRESSION: Stable bilateral screening mammogram. Yearly follow-up mammogram recommended. (A) ASSESSMENT CATEGORY: BIRADS Category 2: Benign. A letter regarding these results will be sent to the patient by the facility within 30 days. Approximately 10% of breast cancers are not detected by mammography. A normal mammogram should not delay biopsy of a clinically suspicious abnormality. [id number] Electronically Signed: Dean Jimenez MD at 10:45 EDT , Service support ,
== END ==
PROVIDERS: PCP Family Medicine; Referring Provider Family Medicine; Visit Provider Family Medicine
DX: Z12.31 Encounter for screening mammogram for malignant neoplasm of breast (principal); Z80.3 Family history of malignant neoplasm of breast
CPT/HCPCS: 77063; 77067

== ENCOUNTER 2021-04-27 09:19 | Outpatient (CLI) | payer MEDICARE, SELFPAY ==
[2021-04-27 12:58] LABS: Microalbumin,Random Urine < 5.0 mg/L (NO RANGE EST.)
[2021-04-27 13:02] LABS: Alanine Aminotransfer ALT/SGPT 23 U/L (13-56); Anion Gap 9 (5-15); BUN 14 mg/dL (7-18); BUN/Creat Ratio 19.8 RATIO (10-20); Calcium,Total 9.2 mg/dL (8.5-10.1); Chloride 103 mmol/L (98-107); Creatinine, Serum 0.71 mg/dL (0.55-1.02); EST Glomerular Filtration Rate 88 mL/min (>60); Est Glom Filt Rate - Afr Amer 106 mL/min (>60); Glucose 107 mg/dL (74-106); Potassium 4.1 mmol/L (3.5-5.1); Sodium Level 138 mmol/L (136-145)
== END 2021-04-27 23:59 | disposition home or self-care (01) ==
LOC: MFPLAB 09:20
PROVIDERS: PCP Family Medicine; Visit Provider Family Medicine
DX: I10 Essential (primary) hypertension (principal); K76.0 Fatty (change of) liver, not elsewhere classified
CPT/HCPCS: 36415; 80048; 82043; 82570; 84460

== ENCOUNTER → 2021-09-03 | Outpatient (CLI) | payer MEDICARE, SELFPAY ==
[2021-09-03 12:51] LABS: ALB/GLOB Ratio 1.1 RATIO (0.9-2.4); AST(SGOT) 14 U/L (15-37); Alanine Aminotransfer ALT/SGPT 24 U/L (13-56); Albumin, Serum 3.6 g/dL (3.2-5.0); Alkaline Phosphatase 45 U/L (45-117); Anion Gap 4 (5-15); BUN 16 mg/dL (7-18); BUN/Creat Ratio 21.7 RATIO (10-20); Calcium,Total 9.2 mg/dL (8.5-10.1); Chloride 103 mmol/L (98-107); Cholesterol 171 mg/dL (200); Creatinine, Serum 0.74 mg/dL (0.55-1.02); EST Glomerular Filtration Rate 84 mL/min (>60); Est Glom Filt Rate - Afr Amer 101 mL/min (>60); Globulin 3.3 g/dL (2.2-4.2); Glucose 103 mg/dL (74-106); High Density Lipoprotein 57 mg/dL; Potassium 3.7 mmol/L (3.5-5.1); Protein, Total 6.9 g/dL (6.4-8.2); Sodium Level 135 mmol/L (136-145); Thyroid Stim Hormone (TSH) 1.83 uIU/mL (0.358-3.74); Triglycerides 113 mg/dL; Very Low Density Lipoprotein 23 mg/dL (5-40)
== END | disposition home or self-care (01) ==
LOC: MFPLAB 09:42
PROVIDERS: PCP Family Medicine; Visit Provider Family Medicine
DX: I10 Essential (primary) hypertension (principal); E89.0 Postprocedural hypothyroidism
CPT/HCPCS: 36415; 80053; 80061; 84443

== ENCOUNTER → 2021-12-18 | Outpatient (CLI) | payer MEDICARE, SELFPAY ==
[2021-12-18 09:56] LABS: Anion Gap 7 (5-15); BUN 14 mg/dL (7-18); BUN/Creat Ratio 17.6 RATIO (10-20); Calcium,Total 9.1 mg/dL (8.5-10.1); Chloride 104 mmol/L (98-107); EST Glomerular Filtration Rate 77 mL/min (>60); Est Glom Filt Rate - Afr Amer 93 mL/min (>60); Glucose 113 mg/dL (74-106); Potassium 3.8 mmol/L (3.5-5.1); Sodium Level 138 mmol/L (136-145)
[2021-12-18 10:14] LABS: Hemoglobin A1c 6.3 % (3.8-5.6)
== END | disposition home or self-care (01) ==
LOC: MFPLAB 08:55
PROVIDERS: PCP Family Medicine; Referring Provider Family Medicine; Visit Provider Family Medicine
DX: I10 Essential (primary) hypertension (principal); R73.02 Impaired glucose tolerance (oral)
CPT/HCPCS: 36415; 80048; 83036

== ENCOUNTER 2022-02-23 07:02 | Day surgery (SDC) | payer MEDICARE, SELFPAY ==
[2022-02-23] VITALS (8 sets, daily range): BP systolic 102–159; BP diastolic 47–60; PULSE 59–70; RESP 12–18; TEMP 36.1–36.7; O2SAT 97–99; BMI 27.7
[2022-02-23] MEDS: Lactated Ringers 1,000 ML 15 ML IV (07:39)
--- NOTE | 2022-02-23 08:09 | PCM.HP.STD ---
[facility] - General General Date of Service: 02/23/22 Chief Complaint: Screening for intestinal cancer [facility] Narrative SANDER BISHOP, is a 66 F who presents who presents for screening colonoscopy today. She presents via open access. She has never had a previous colonoscopy. She was a brother who in her early 50s had colon cancer. She denies bright red blood per rectum or melena. No abdominal pain. She otherwise states that she is in good health other than being prediabetic [facility] Medical History (Updated 02/22/22 @ 12:51 by Chelsea Harris) Abnormal mammogram Arthritis Elevated liver enzymes Fatty liver HTN (hypertension) Left thyroid nodule Non-smoker Post-surgical hypothyroidism Restless legs Wears dentures Wears glasses Home Medications levothyroxine 75 mcg tablet 75 mcg PO DAILY #30 tabs 04/27/19 [Rx Last Taken 02/23/22] ascorbate calcium (vitamin C) 500 mg tablet 500 mg PO DAILY 01/20/22 [History Last Taken Unknown] cholecalciferol (vitamin D3) 50 mcg (2,000 unit) capsule 50 mcg PO DAILY 01/20/22 [History Last Taken Unknown] hydrochlorothiazide 12.5 mg tablet 12.5 mg PO DAILY 01/20/22 [History Last Taken Unknown] lisinopril 10 mg tablet 10 mg PO DAILY 01/20/22 [History Last Taken 02/23/22] magnesium oxide 500 mg capsule 500 mg PO DAILY 01/20/22 [History Last Taken Unknown] multivitamin 1 tab PO DAILY 01/20/22 [History Last Taken Unknown] omega-3 fatty acids 1,000 mg capsule 1,000 mg PO DAILY 01/20/22 [History Last Taken Unknown] vitamin E (dl, acetate) 45 mg (100 unit) capsule 45 mg PO DAILY 01/20/22 [History Last Taken Unknown] Allergy/AdvReac Type Severity Reaction Status Date / Time No Known Allergies Allergy Verified 02/23/22 07:24 Family History (Updated 01/20/22 @ 08:47 by Zenia Edward) Mother Heart disease Father Kidney disease Sister Breast cancer Brother Colon cancer Surgical History S/P cholecystectomy S/P total thyroidectomy (~03/05/19) Status post biopsy of thyroid gland (~12/2018) Social History (Reviewed 01/20/22 @ 08:44 by Zenia Tracy Smoking Status: Never smoker second hand exposure: No alcohol intake: never substance use type: does not use caffeine: Yes what type of physical activity do you participate in: none frequency: does not exercise seatbelt use: always ROS Constitutional Constitutional: Reports systems reviewed and no addt'l complaints, except as documented Cardiovascular Cardiovascular: Denies chest pain Respiratory/Chest Respiratory/Chest: Denies shortness of breath at rest Gastrointestinal Gastrointestinal: Denies abdominal pain, change in bowel habits, hematochezia or melena Vital Signs Vital Signs Vital Signs: 02/23/22 07:32 02/23/22 07:32 Temperature 97.6 F L Temperature Source Temporal Pulse Rate 70 Respiratory Rate 16 Respiratory Pattern Normal Blood Pressure 159/57 H Blood Pressure Mean 91 Blood Pressure Source Monitor Blood Pressure Position Semi-Fowlers Blood Pressure Location Left Arm Pulse Ox 99 Oxygen Delivery Method Room Air Weight Weight: 156 lb 8.451 oz Body Mass Index (BMI) 27.7 Physical Exam Const alert, oriented x3 and no apparent distress General Appearance: cooperative and comfortable Eyes General Eye: normal appearance of both eyes Neck General: normal visual inspection Chest inspection of chest normal Resp Effort and Inspection: able to speak in complete sentences and symmetric chest movement Auscultation: clear to auscultation bilaterally Cardio regular rate and regular rhythm GI soft to palpation, non-tender and non-distended Extremity no calf tenderness Neuro oriented x3 Psych thought process normal Assessment & Plan Assessment/Plan (1) Encounter for screening for malignant neoplasm of colon: PLAN: The patient presents via open access today for screening colonoscopy with possible biopsy or polypectomy as indicated. She is aware of the technique, benefit, risk, alternatives. She has had an opportunity to ask and have questions answered. We will proceed as noted. Scotty Hanson M.D., F.A.C.S.
--- NOTE | 2022-02-23 08:33 | OP.COLON_ITS ---
Patient Name: Lisa Franco Procedure Date: 02/23/2022 7:58 AM Date of : 1955 Age: 66 Procedure: Colonoscopy Indications: Screening for colorectal malignant neoplasm Providers: Scotty Hanson MD Referring MD: Vinay Perkins Medicines: See the Anesthesia note for documentation of the administered medications Patient Profile: Last Colonoscopy: none. The patient's first colonoscopy is today. Complications: No immediate complications. Procedure: Pre-Anesthesia Assessment: - Prior to the procedure, a History and Physical was performed, and patient medications and allergies were reviewed. The patient's tolerance of previous anesthesia was also reviewed. The risks and benefits of the procedure and the sedation options and risks were discussed with the patient. All questions were answered, and informed consent was obtained. Prior Anticoagulants: The patient has taken no previous anticoagulant or antiplatelet agents. ASA Grade Assessment: II - A patient with mild systemic disease. After reviewing the risks and benefits, the patient was deemed in satisfactory condition to undergo the procedure. After I obtained informed consent, the scope was passed under direct vision. Throughout the procedure, the patient's blood pressure, pulse, and oxygen saturations were monitored continuously. The colonoscope was introduced through the anus and advanced to the cecum, identified by appendiceal orifice and ileocecal valve. The colonoscopy was performed without difficulty. The patient tolerated the procedure well. The quality of the bowel preparation was good. The ileocecal valve and the appendiceal orifice were photographed. Scope In: 8:15:14 AM Scope Withdrawal Time 0 hours 8 minutes 2 seconds Scope Out: 8:28:36 AM Total Procedure Duration Time 0 hours 13 minutes 22 seconds Findings: The perianal and digital rectal examinations were normal. The right colon was mildly tortuous. Advancing the scope required using manual pressure. The exam was otherwise without abnormality. Impression: - Tortuous colon. - The examination was otherwise normal. - No specimens collected. Recommendation: - Discharge patient to home. - Resume previous diet. - Continue present medications. - Repeat colonoscopy in 5 years for surveillance. Patient's brother in his low 50s had colon cancer Procedure Code(s): --- Professional --- 01831, Colonoscopy, flexible; diagnostic, including collection of specimen(s) by brushing or washing, when performed (separate procedure) Diagnosis Code(s): --- Professional --- Z12.11, Encounter for screening for malignant neoplasm of colon Q43.8, Other specified congenital malformations of intestine CPT copyright 2017 [employer]. All rights reserved. 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 Scotty Hanson MD 02/23/2022 8:33:01 AM This report has been signed electronically. Number of Addenda: 0 Note Initiated On: 02/23/2022 7:58 AM
--- NOTE | 2022-02-23 08:34 | OP.CCLET_ITS ---
02/23/2022 Vinay Perkins [address] [place] [address] Re : Colonoscopy procedure for Lisa Franco Dear Dr. Perkins This procedure was performed on Wednesday, February 23, 2022. My impressions and recommendations are as follows: Impressions : - Tortuous colon. - The examination was otherwise normal. - No specimens collected. Recommendations : - Discharge patient to home. - Resume previous diet. - Continue present medications. - Repeat colonoscopy in 5 years for surveillance. Patient's brother in his low 50s had colon cancer My findings are described in the full procedure note, which is enclosed. If I can be of further assistance, please feel free to contact me at Doctor phone number(s): Work: . Sincerely, Scotty Hanson MD 02/23/2022 8:33:01 AM This report has been signed electronically.
== END 2022-02-23 09:40 | disposition home or self-care (01) ==
LOC: EN 07:06 → AC 07:08
PROVIDERS: PCP Family Medicine; Referring Provider Family Medicine; Visit Provider Surgery
PROC: 0DJD8ZZ Inspection of Lower Intestinal Tract, Via Natural or Artificial Opening Endoscopic (ICD-10-PCS; CPT 45378; principal; 2022-02-23 07:55)
DX: Z12.11 Encounter for screening for malignant neoplasm of colon (principal); Q43.8 Other specified congenital malformations of intestine; I10 Essential (primary) hypertension; K76.0 Fatty (change of) liver, not elsewhere classified; Z80.0 Family history of malignant neoplasm of digestive organs; Z79.899 Other long term (current) drug therapy
CPT/HCPCS: 45378; J7120; J2405

== ENCOUNTER → 2022-03-26 | Outpatient (CLI) | payer MEDICARE, SELFPAY ==
[2022-03-26 10:11] LABS: Absolute Lymphocyte Count 1.95 X10^3/uL (0.83-4.51); Absolute Neutrophil Count 2.7 X10^3/uL (2.0-7.7); Basophil# 0.02 X10^3/uL; Basophil% 0.4 % (0-1); Eosinophils% 1.9 % (0-5); Hematocrit 38.6 % (37-47); Hemoglobin 13.7 g/dL (12.0-15.0); Lymphocyte # 1.95 X10^3/ul (0.83-4.51); Lymphocyte % 36.8 % (19-41); Mean Corp Hgb Conc 35.5 g/dL (32-36); Mean Corpuscular Hgb 32.9 pg (27.0-32.0); Mean Corpuscular Volume 92.6 fL (81-99); Mean Platelet Vol. 10.7 fl (6.2-12.0); Monocyte# 0.48 X10^3/uL; Monocyte% 9.1 % (0-10); NRBC Flagged by Analyzer 0 % (0-5); Neutrophil # 2.73 X10^3/uL (2.7-7.7); Neutrophil % 51.4 % (47-70); Platelet Count 225 K/mm3 (150-450); RBC Distribution Width CV 12.3 % (11.6-14.6); RBC Distribution Width SD 42.1 fl (35.1-43.9); Red Blood Count 4.17 M/mm3 (4.2-5.4); White Blood Count 5.3 K/mm3 (4.4-11.0)
[2022-03-26 11:07] LABS: ALB/GLOB Ratio 1.1 RATIO (0.9-2.4); AST(SGOT) 14 U/L (15-37); Alanine Aminotransfer ALT/SGPT 23 U/L (13-56); Albumin, Serum 3.5 g/dL (3.2-5.0); Alkaline Phosphatase 48 U/L (45-117); Anion Gap 9 (5-15); BUN 15 mg/dL (7-18); BUN/Creat Ratio 20.7 RATIO (10-20); Calcium,Total 8.9 mg/dL (8.5-10.1); Chloride 104 mmol/L (98-107); Creatinine, Serum 0.72 mg/dL (0.55-1.02); EST Glomerular Filtration Rate 85 mL/min (>60); Est Glom Filt Rate - Afr Amer 103 mL/min (>60); Globulin 3.3 g/dL (2.2-4.2); Glucose 105 mg/dL (74-106); Potassium 3.9 mmol/L (3.5-5.1); Protein, Total 6.8 g/dL (6.4-8.2); Sodium Level 139 mmol/L (136-145); T4 Free Direct 1.21 ng/dL (0.76-1.46); Thyroid Stim Hormone (TSH) 2.03 uIU/mL (0.358-3.74)
== END | disposition home or self-care (01) ==
LOC: MFPLAB 09:02
PROVIDERS: PCP Family Medicine; Referring Provider Family Medicine; Visit Provider Nurse Practitioner Family
DX: E89.0 Postprocedural hypothyroidism (principal); I10 Essential (primary) hypertension; R73.02 Impaired glucose tolerance (oral)
CPT/HCPCS: 36415; 80053; 83036; 84439; 84443; 85025

== ENCOUNTER → 2022-05-28 | Outpatient (CLI) | payer MEDICARE, SELFPAY ==
--- NOTE | 2022-05-28 08:17 | BI_ITS ---
MAMMOGRAPHY - BILATERAL SCREENING 3-D TOMOSYNTHESIS REASON FOR EXAM: Female, 66 years old. Routine screening PERTINENT HISTORY: Sister with breast cancer.. TECHNIQUE: 2-D mammograms and 3-D Tomosynthesis of the breast (s) were performed. CAD was performed. COMPARISON: 10/31/2020, 07/25/2019 FINDINGS: The breast composition is heterogeneously dense that can obscure small breast masses. Clustered calcifications in the central posterior right breast are stable and unchanged. However, the cluster calcifications in the upper outer quadrant of the right breast haven''t changed since the previous study, specifically, there are more calcifications present and they are of different sizes. Further evaluation of this with magnification views recommended. Compare stable chunky calcifications in the left breast. No dense spiculated masses or suspicious microcalcifications are identified. No architectural distortion is identified. There is no skin thickening or retraction. There has been no significant change since the prior study. BI/SCRN MAMM (CAD)W/JEZ BILAT IMPRESSION: Magnification views of the right breast in the upper outer quadrant cluster of calcifications recommended ASSESSMENT CATEGORY: BIRADS Category 0: Incomplete. Need additional imaging evaluation as above. A letter regarding these results will be sent to the patient by the facility within 30 days. FOLLOW UP RECOMMENDATION: Additional imaging recommended as above. (E) Approximately 10% of breast cancers are not detected by mammography. A normal mammogram should not delay biopsy of a clinically suspicious abnormality. Electronically Signed: Huang Rios MD at 9:15 EDT ,
== END | disposition home or self-care (01) ==
LOC: OPBI 08:15
PROVIDERS: PCP Family Medicine; Referring Provider Nurse Practitioner Family; Visit Provider Nurse Practitioner Family
DX: Z12.31 Encounter for screening mammogram for malignant neoplasm of breast (principal)
CPT/HCPCS: 77063; 77067

== ENCOUNTER → 2022-06-04 | Outpatient (CLI) | payer MEDICARE, SELFPAY ==
--- NOTE | 2022-06-04 09:32 | BI_ITS ---
MAMMOGRAPHY - UNILATERAL DIAGNOSTIC: RIGHT BREAST REASON FOR EXAM: Female, 66 years old. Abnormal screening mammogram. PERTINENT HISTORY: Sister with breast cancer. TECHNIQUE: Magnification spot views of the right breast were obtained. . CAD: Full Field Digital Mammography with Computer Added Detection was performed. COMPARISON: Comparison is made with prior study dated May 28, 2022. FINDINGS: Breast Composition: The breasts are heterogeneously dense, which may obscure small masses. Persistent cluster of microcalcification in the upper lateral aspect of the breast. Biopsy is recommended. No other significant abnormalities are identified. BI/DIAG MAMM W/CAD, UNILAT IMPRESSION: Persistent cluster of microcalcifications in the upper lateral aspect of the right breast. Biopsy recommended. ASSESSMENT CATEGORY: BIRADS Category 4: Suspicious - Biopsy Should Be Considered. A letter regarding these results will be sent to the patient by the facility within 30 days. Approximately 10% of breast cancers are not detected by mammography. A normal mammogram should not delay biopsy of a clinically suspicious abnormality. Electronically Signed: Dean Jimenez MD at 10:47 EDT ,
== END | disposition home or self-care (01) ==
LOC: OPBI 09:30
PROVIDERS: PCP Family Medicine; Referring Provider Nurse Practitioner Family; Visit Provider Nurse Practitioner Family
DX: R92.8 Other abnormal and inconclusive findings on diagnostic imaging of breast (principal); Z80.3 Family history of malignant neoplasm of breast
CPT/HCPCS: 77065

== ENCOUNTER → 2022-06-16 | Outpatient (CLI) | payer MEDICARE, SELFPAY ==
--- NOTE | 2022-06-16 | BRBX_PTH ---
PATIENT: SANDER BISHOP LOC: [facility] U#:[id number] AGE/SX: 66/F ROOM: RE06/16/[address]: Dr. Scotty Hanson MD : 1955 BED: DIS: 06/16/2022 SPEC #: [id number] RECD: 06/16/22 10:48 STATUS: ALETHEA JW #: [id number] TRISTIN: 06/16/22 00:[address]: Scotty Hanson DEPT: SURGICAL PATHOLOGY RECD BY: Raghav Berg ENTERED: 06/16/22 10:48 SP TYPE: BREAST BX OTHR DR: Dr. Vinay Perkins MD Tissues: Right breast, NOS Procedures: Surgery Specimen Level IV HEADER OPERATION: Right stereotactic breast biopsy PRE-OP DIAGNOSIS: Right upper lateral breast microcalcifications TISSUE SUBMITTED: Right breast core tissue ISCHEMIC TIME: 1 minute FIXATION TIME: 33.5 hours MICROSCOPIC DIAGNOSIS Right upper lateral breast, stereotactic core biopsy: Densely collagenized stroma with Banal clustered microcalcifications. Mild duct ectasia. No evidence of malignancy. See comment. 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 Clinical correlation is suggested. MICROSCOPIC DESCRIPTION Slides are reviewed. GROSS DESCRIPTION Received is one container labeled with the patient's name and not further designated. The specimen consists of multiple irregular fragments of yellow-white soft tissue that in aggregate measure 2.5 x 2.5 x 0.2 cm. The specimen is totally submitted in one cassette. / AM:judith 06/16/2022 TC:5 CPT: 92607
--- NOTE | 2022-06-16 09:44 | HP.PCM_ITS ---
History and Physical Date of Admission: 06/16/22 Visit Reasons:?BIRADS 4 MAMMO ONLY Chief Complaint: birads 4 mammo consult Allergies No Known Allergies Allergy (Verified 02/23/22 07:24) Medications levothyroxine 75 mcg tablet 75 mcg PO DAILY #30 tabs 04/27/19 [Rx Confirmed 06/09/22] ascorbate calcium (vitamin C) 500 mg tablet 500 mg PO DAILY 01/20/22 [History Confirmed 06/09/22] cholecalciferol (vitamin D3) 50 mcg (2,000 unit) capsule 50 mcg PO DAILY 01/20/22 [History Confirmed 06/09/22] hydrochlorothiazide 12.5 mg tablet 12.5 mg PO DAILY 01/20/22 [History Confirmed 06/09/22] magnesium oxide 500 mg capsule 500 mg PO DAILY 01/20/22 [History Confirmed 06/09/22] multivitamin 1 tab PO DAILY 01/20/22 [History Confirmed 06/09/22] omega-3 fatty acids 1,000 mg capsule 1,000 mg PO DAILY 01/20/22 [History Confirmed 06/09/22] vitamin E (dl, acetate) 45 mg (100 unit) capsule 45 mg PO DAILY 01/20/22 [History Confirmed 06/09/22] ramipril 1.25 mg capsule 1.25 mg PO DAILY 06/09/22 [History Confirmed 06/09/22] PFSH Medical History?(Updated 02/22/22 @ 12:51 by Chelsea Harris) Abnormal mammogram Arthritis Elevated liver enzymes Fatty liver HTN (hypertension) Left thyroid nodule Non-smoker Post-surgical hypothyroidism Restless legs Wears dentures Wears glasses Surgical History? S/P cholecystectomy S/P total thyroidectomy (~03/05/19) Status post biopsy of thyroid gland (~12/2018) Family History? Mother Heart diseaseFather Kidney diseaseSister Breast cancerBrother Colon cancer Social History? Smoking Status:? Never smoker second hand exposure:? No alcohol intake:? never substance use type:? does not use caffeine:? Yes what type of physical activity do you participate in:? none frequency:? does not exercise seatbelt use:? always HPI HPI HPI: 66-year-old female is being referred by Joe Suarez CNP and Dr. Vinay ePrkins for surgical consultation regarding abnormal mammograms.? A written compromise surgical consult recommendations will return to them. 66-year-old female.? G0.? Menarche at age 14.? As noted below previous yrte needle core right breast biopsy June 02, 2017 for microcalcifications with fibroadenoma detected on pathology.? Family history notable that her sister in her late 30s had breast cancer. Her recent screening mammograms of May 28, 2022 with diagnostic right mammograms on June 04, 2022 identify increased clustered calcifications upper outer aspect of the right breast.? BI-RADS Category 4.? I have personally rev iewed these images and concur.? On review of the appearance of her previously biopsied microcalcifications this area of new concern looks quite similar and likely represents fibroadenoma as well I have assisted the patient most recently on February 23, 2022 with a colonoscopy.? Her brother had colon cancer when he was in his low 50s.? Fortunately although she had a tortuous colon the exam was otherwise unremarkable.? I have also previously assisted her March 05, 2019 with a total thyroidectomy for abnormal fine-needle aspiration findings with the final pathology showing a colloid nodule with focal adenomatous change of the left thyroid and 2 incidental lymph nodes. Previously June 02, 2017 I performed a stereotactic needle core biopsy upper inner right breast for microcalcifications.? Pathology demonstrated a hyalinized fibroadenoma with focal calcification was negative for malignancy. The patient states that she has absolutely no symptoms today.? No tenderness no nipple discharge.? She is otherwise enjoying good health. June 04, 2022 MAMMOGRAPHY - UNILATERAL DIAGNOSTIC:? RIGHT BREAST REASON FOR EXAM: ? Female, 66 years old.? Abnormal screening mammogram. PERTINENT HISTORY:? Sister with breast cancer. TECHNIQUE: ? Magnification spot views of the right breast were obtained. . CAD: Full Field Digital Mammography with Computer Added Detection was performed. COMPARISON: ? Comparison is made with prior study dated May 28, 2022. FINDINGS: Breast Composition:? The breasts are heterogeneously dense, which may obscure small masses. Persistent cluster of microcalcification in the upper lateral aspect of the breast. Biopsy is recommended. No other significant abnormalities are identified. BI/DIAG MAMM W/CAD, UNILAT IMPRESSION: Persistent cluster of microcalcifications in the upper lateral aspect of the right breast. Biopsy recommended. ? ? ASSESSMENT CATEGORY: BIRADS Category 4:? Suspicious - Biopsy Should Be Considered.? A letter regarding these results will be sent to the patient by the facility within 30 days. ? Approximately 10% of breast cancers are not detected by mammography.? A normal mammogram should not delay biopsy of a clinically suspicious abnormality. ? Electronically Signed: Dean Jimenez MD at 10:47 EDT , May 28, 2022 MAMMOGRAPHY - BILATERAL SCREENING 3-D TOMOSYNTHESIS REASON FOR EXAM: ? Female, 66 years old.? Routine screening PERTINENT HISTORY: Sister with breast cancer.. TECHNIQUE: 2-D mammograms and 3-D Tomosynthesis of the breast (s) were performed.? CAD was performed. COMPARISON:? 10/31/2020, 07/25/2019 FINDINGS: The breast composition is heterogeneously dense that can obscure small breast masses. Clustered calcifications in the central posterior right breast are stable and unchanged. However, the cluster calcifications in the upper outer quadrant of the right breast haven''t changed since the previous study, specifically, there are more calcifications present and they are of different sizes. Further evaluation of this with magnification views recommended. Compare stable chunky calcifications in the left breast. No dense spiculated masses or suspicious microcalcifications are identified.? No architectural distortion is identified.? There is no skin thickening or retraction. There has been no significant change since the prior study. BI/SCRN MAMM (CAD)W/JEZ BILAT IMPRESSION: Magnification views of the right breast in the upper outer quadrant cluster of calcifications recommended ? ASSESSMENT CATEGORY: BIRADS Category 0:? Incomplete.? Need additional imaging evaluation as above.? A letter regarding these results will be sent to the patient by the facility within 30 days. ? FOLLOW UP RECOMMENDATION: Additional imaging recommended as above. (E) ? Approximately 10% of breast cancers are not detected by mammography.? A normal mammogram should not delay biopsy of a clinically suspicious abnormality. ? Electronically Signed: Huang Rios MD at 9:15 EDT Reading Location ID and State: [address] [place] [address] , Service support? , ROS General General: No weight change, appetite, fatigue, colon cancer, breast cancer or weakness HEENT HEENT: No difficulty swallowing, eye injury, eye surgery, swollen glands or hoarseness Endo Endocrine: No thyroid disease, diabetes mellitus, thyroid cancer, Hair loss, heat intolerance or cold intolerance Skin Skin: No rash or changing moles Breast Breast: No left breast lump, right breast lump, nipple discharge, breast pain, abnormal mammogram, abnormal US or breast enlargement Musc Musculoskeletal: No back problems, arthritis, rheumatoid arthritis, gout or joint pain Cardio Cardiovascular: Yes high blood pressure; No murmur, pacemaker, heart disease, atrial fibrillation, heart attack, heart stent, palpitations, shortness of breat with exertion or chest pain Psych Psychiatric: No depression, anxiety or hearing voices Resp Respiratory: No shortness of breath, No sleep apnea, No cough, No COPD, No asthma, No emphysema and No wheezing Gastro Gastrointestinal: No abdominal pain, No nausea or vomiting, No diarrhea, No constipation, No blood in stool, No acid reflux, No hemorrhoids, No ulcers, No gallbladder problem and No black,tarry stools Ramos Hematologic: No blood thinners, No blood disorders, No bleeding, No anemia and No blood clots Neuro Neurologic: No system reviewed and no additional complaints, except as documented, No as per HPI, No abnormal gait, No abnormal hearing, No abnormal movements, No abnormal speech, No behavioral changes, No burning sensations, No confusion, No convulsions, No disequilibrium, No dizziness, No localized weakness, No frequent falls, No headache(s), No lack of coordination, No loss of vision, No memory loss, No numbness, No other visual disturbances, No radicular pain, No restless legs, No sensory deficit, No syncope, No tingling, No tremor(s), No weakness and No other Exam Chest Other: Right breast: No focal mass.? No nipple discharge.? No axillary clavicular adenopathy Left breast: Diffuse fibrous change in the operative quadrant left breast slightly tender.? Rubbery mobile.? No axillary clavicular adenopathy Assessment and Plan Assessment and Plan (1) Abnormal mammogram of right breast: ?Status:?Acute ?Plan: I recommend to the patient a stereotactic core biopsy upper outer quadrant right breast microcalcifications.? She is very much aware of the technique, benefit, risk, alternatives.? She has had an opportunity to ask and have questions answered.? We will schedule procedure at her discretion. Scotty Hanson M.D., F.A.C.S I have examined the patient and the H&P has been reviewed. There are no clinical changes since date of exam. Scotty Hanson M.D., F.A.C.S.
--- NOTE | 2022-06-16 10:04 | OP.PCM_ITS ---
Report of Operation Date of Procedure: 06/16/22 Pre-Operative Diagnosis: Microcalcifications upper outer quadrant right breast Post-Operative Diagnosis: Same Surgery/Procedure Performed:: Stereotactic needle core biopsy upper outer quadrant right breast Description of Surgical Findings:: Timeout and informed consent was obtained. 66-year-old female was taken to the stereotactic room placed prone on the table the right breast was placed in the cc view on fast view was obtained microcalcifications identified stereotactic images were obtained digital information was obtained on a single target site the breast was prepped with Betadine 1% lidocaine was used as a local anesthetic 10 cc was used a small stab incision was created 8 gauge resolved needle was advanced to prefire depth prefire films were obtained demonstrating adequate loc alization the device was fired 6 cores were obtained specimen mammograms are obtained demonstrating several cores to have appropriate calcifications a butterfly clip was left in position on fast view demonstrated good positioning pressure was held and she was released from the device Steri-Strips sterile dressings applied she was given activity wound care instructions the specimens had been immediately placed in formalin for analysis Blood loss minimal no apparent complications she tolerated the procedure well. Scotty Hanson M.D., F.A.C.S. Surgeon: Scotty Hanson Type of Anesthesia: Local
== END | disposition home or self-care (01) ==
PROVIDERS: PCP Family Medicine; Visit Provider Surgery
DX: N60.41 Mammary duct ectasia of right breast (principal); R92.0 Mammographic microcalcification found on diagnostic imaging of breast; R92.8 Other abnormal and inconclusive findings on diagnostic imaging of breast
CPT/HCPCS: 19081; 88305; J7050

== ENCOUNTER → 2022-10-01 | Outpatient (CLI) | payer MEDICARE, SELFPAY ==
[2022-10-01 12:31] LABS: Absolute Lymphocyte Count 2.03 X10^3/uL (0.83-4.51); Absolute Neutrophil Count 3.2 X10^3/uL (2.0-7.7); Basophil# 0.03 X10^3/uL; Basophil% 0.5 % (0-1); Eosinophil# 0.12 X10^3/uL; Hematocrit 42.1 % (37-47); Hemoglobin 14.2 g/dL (12.0-15.0); Lymphocyte # 2.03 X10^3/ul (0.83-4.51); Lymphocyte % 33.6 % (19-41); Mean Corp Hgb Conc 33.7 g/dL (32-36); Mean Corpuscular Hgb 31.6 pg (27.0-32.0); Mean Corpuscular Volume 93.8 fL (81-99); Mean Platelet Vol. 10.5 fl (6.2-12.0); Monocyte% 9.9 % (0-10); NRBC Flagged by Analyzer 0 % (0-5); Neutrophil # 3.24 X10^3/uL (2.7-7.7); Neutrophil % 53.7 % (47-70); Platelet Count 224 K/mm3 (150-450); RBC Distribution Width SD 41.9 fl (35.1-43.9); Red Blood Count 4.49 M/mm3 (4.2-5.4)
[2022-10-01 13:15] LABS: Hemoglobin A1c 6.3 % (3.8-5.6)
[2022-10-01 14:54] LABS: AST(SGOT) 14 U/L (15-37); Alanine Aminotransfer ALT/SGPT 26 U/L (13-56); Albumin, Serum 3.7 g/dL (3.2-5.0); Alkaline Phosphatase 53 U/L (45-117); Anion Gap 6 (5-15); BUN 13 mg/dL (7-18); BUN/Creat Ratio 18.6 RATIO (10-20); Calcium,Total 9.3 mg/dL (8.5-10.1); Chloride 102 mmol/L (98-107); Cholesterol 188 mg/dL (200); EST Glomerular Filtration Rate 89 mL/min (>60); Est Glom Filt Rate - Afr Amer 107 mL/min (>60); Globulin 3.7 g/dL (2.2-4.2); Glucose 107 mg/dL (74-106); High Density Lipoprotein 51 mg/dL; Potassium 4.2 mmol/L (3.5-5.1); Protein, Total 7.4 g/dL (6.4-8.2); Sodium Level 137 mmol/L (136-145)
== END | disposition home or self-care (01) ==
LOC: MFPLAB 10:04
PROVIDERS: PCP Family Medicine; Visit Provider Family Medicine
DX: I10 Essential (primary) hypertension (principal); N76.0 Acute vaginitis; R73.02 Impaired glucose tolerance (oral)
CPT/HCPCS: 36415; 80053; 82465; 83036; 83718; 85025

== ENCOUNTER → 2023-03-18 | Outpatient (CLI) | payer MEDICARE, SELFPAY ==
[2023-03-18 11:31] LABS: Thyroid Stim Hormone (TSH) 3.86 uIU/mL (0.358-3.74)
== END | disposition home or self-care (01) ==
LOC: MFPLAB 09:33
PROVIDERS: PCP Family Medicine; Visit Provider Family Medicine
DX: E03.9 Hypothyroidism, unspecified (principal)
CPT/HCPCS: 36415; 84443

== ENCOUNTER → 2023-04-08 | Outpatient (CLI) | payer MEDICARE, SELFPAY ==
--- OUTSIDE RECORDS SUMMARY | 2023-04-08 09:46 | XMS RPT_ITS | CCD ---
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 Lace Name Role Phone Deysi Sullivan Unavailable Chandra Ram Unavailable Scotty Hanson Unavailable Bari Perkins Unavailable Unavailable Unavailable Unavailable Deysi Sullivan Attending Unavailable Deysi Sullivan Referring Unavailable Deysi Sullivan Consulting Unavailable PAIGEZARIA HSU Admitting Unavailable PAIGEZARIA Attending Unavailable PAIGEZARIA ROGER Primary Care Unavailable PAIGEZARIA ROGER Admitting Unavailable PAIGEZARIA Attending Unavailable PAIGEZARIA Primary Care Unavailable PAIGEZARIA Admitting Unavailable PAIGEZARIA HSU Attending Unavailable ZARIA GIBSON Primary Care Unavailable Medications Completed/Discontinued Medications Medication Drug Class(es) Dates Sig (Normalized) Sig (Original) ascorbic acid 1000 mg oral tablet (2 sources) Vitamin C take 1 mg by mouth once daily Vitamin C 1000 MG Oral Tablet daily (1000 MG) Active B Complex Oral Capsule (2 sources) Start: 05-10-2017 End: 11-30-2017 take 1 capsule by mouth once daily B Complex Oral Capsule 1 (one) Capsule Capsule daily for 30 days Quantity: 30 {Capsule} Refills: 2 Ordered: 30-Nov-2017 Lexus George Start : 10-May-2017 End : 30-Nov-2017 Discontinued beta tcp daily (2 sources) beta tcp daily Active calcium carbonate 400 mg / cholecalciferol 133 unt / magnesium oxide 167 mg oral tablet (2 sources) Vitamin D Start: 05-10-2017 take 1 tablet by mouth once daily Koaflfg-Hngmudngp-Yd tamin D 400-166.7-133.3 MG-MG-UNIT Oral Tablet 1 (one) Tablet Tablet daily for 30 days Quantity: 30 {Tablet} Refills: 3 Ordered: 24-May-2017 Esther López LPN Start : 10-May-2017 Active vitamin b 12 5 mg disintegrating oral tablet (2 sources) Vitamin B12 Start: 05-10-2017 End: 11-30-2017 take 1 tablet by mouth once daily B12 Fast Dissolve 5000 MCG Oral Tablet Disintegrating 1 (one) Tablet Disint Tablet Disint daily for 0 days Quantity: 30 {Tablet} Refills: 3 Ordered: 30-Nov-2017 Lexus George Start : 10-May-2017 End : 30-Nov-2017 Discontinued vitamin e d-alpha 400 unt oral capsule (2 sources) Start: 06-10-2017 take 1 capsule by mouth once daily Vitamin E Blend 400 UNIT Oral Capsule 1 (one) Capsule Capsule daily for 0 days Quantity: 30 {Capsule} Refills: 0 Ordered: 30-Nov-2017 Deysi Sullivan CNP, CNP, Mary E Start : 10-Jun-2017 Active Problems Active Problems Problem Classification Problem Date Documented Da te Episodic/Chronic Calculus of urinary tract (4 sources) Kidney stone; Translations: [Kidney stone] 06-21-2018 Episodic Past or Other Problems Problem Classification Problem Date Documented Da te Episodic/Chronic Diabetes mellitus without complication (2 sources) Diabetes mellitus without complication Disorders of lipid metabolism (2 sources) Hypercholesterolemi a; Translations: [Hypercholesteremia ] Resolved: 06-21-2018 06-21-2018 Chronic Other liver diseases (2 sources) Abnormal levels of other serum enzymes; Translations: [Elevated liver enzymes] Resolved: 06-21-2018 06-21-2018 Episodic Results Test Name Value Interpretation Reference Range Facil ity Vital Signs Date Time Vital Sign Value Performing Clinician Facility 06-21-2018 08:13-0400 BMI (Body Mass Index) 24.14 kg/m2 Deysi Sullivan [facility] Work Phone: 06-21-2018 08:13-0400 Body Temperature 96.9 [degF] Deysi Sullivan [facility] Work Phone: Encounters Encounter Date Encounter Type Care Provider Facility Start: 10-23-2019 End: 10-23-2019 Patient encounter procedure ZARIA GIBSON [facility] Start: 10-22-2019 End: 10-22-2019 Patient encounter procedure ZARIA Arceo PAIGE [facility] Start: 10-08-2019 End: 10-08-2019 Patient encounter procedure ZARIA Arceo PAIGE [facility] Start: 06-21-2018 End: 06-21-2018 Annotation/Addendum Deysi [facility] Start: 06-21-2018 Patient encounter procedure Deysi Sullivan [facility] Start: 06-21-2018 End: 06-21-2018 Office outpatient visit 15 minutes Deysi Missybibariella [facility] Start: 11-30-2017 End: 11-30-2017 Office outpatient visit 25 minutes Deysi Louisbibariella [facility] Start: 06-10-2017 End: 06-10-2017 Annotation/Addendum Deysi Nate [facility] Start: 05-24-2017 End: 05-24-2017 Office outpatient visit 15 minutes Deysi Louisbibariella [facility] Start: 05-10-2017 End: 05-10-2017 Erroneous Entry Deysi Missybibariella [facility] Start: 05-10-2017 End: 05-10-2017 Initial preventive medicine new patient 40-64yrs Deysi Sullivan [facility] Procedures Date Procedure Procedure Detail Performing Clinician Start: 06-02-2017 End: 06-02-2017 Operative Report Comments: See Note; NOTES: [facility] Medical Records Department [address] [place] [address] Operative Report 06/02/17 1130 MR#: [id number] Acct: [id number] Name: SANDER BISHOP Rep #: [id number] : 1955 61 From: Scotty Hanson MD PCP: Deysi Sullivan NP Status: REG CLI Y Location: [facility] Problem List (1) Abnormal mammogram of right breast Status: Acute Report of Operation Date of Procedure: 06/02/17 Pre-Operative Diagnosis: Microcalcifications upper inner right breast Post-Operative Diagnosis: Same Surgery/Procedure Performed:: Stereotactic needle core biopsy upper inner right breast Description of Surgical Findings:: Timeout and informed consent was obtained. 61-year-old female was taken to the [facility] at room. Post prone on the table. Initially she was placed in a medial lateral view. The microcalcifications could not be readily identified. She was then placed in the cc view. The microcalcifications rapidly identified. Stereotactic images were obtained. Digital information was obtained on a single target site. The breast was prepped with Betadine. 1% lidocaine was used as a local anesthetic. A spinal needle was used to assist with penetration. A total of 10 cc was used. A small stab incision was created. An 8-gauge resolve needle was advanced to prefire depth. Prefire films were obtained demonstrating adequate localization. The device was fired. 6 cores were obtained. Specimen mammograms were obtained. 2 of the cores had microcalcifications clearly present. A marking clip was then left at the 12 o'clock position. She was released with advice. Pressure was held for hemostasis. Steri-Strips Telfa OpSite dressings applied. Blood loss was minimal. She tired procedure well. The specimens was submitted in formalin for analysis. Progress prognosis felt to be good. Scotty Hanson M.D., F.A.C.S. Type of Anesthesia:: Local 06/02/17 1132 <Electronically signed by Scotty Hanson MD> Date Scotty Hanson MD CC: Deysi Sullivan NP; Scotty Hanson MD Signed Deysi Sullivan Start: 05-30-2017 End: 05-30-2017 Liver Comments: See Note; NOTES: [facility] Imaging Services [address] [place] [id number] Liver MR#: [id number] Acct: [id number] Name: SANDER BISHOP Rep #: [id number] : 1955 F 61 From: Fidel Duval MD PCP: Deysi Sullivan NP Status: REG CLI Study: Liver Date of Exam: 05/30/17 Exam# [id number] Ordering Dr: Deysi Sullivan STUDY: ABDOMINAL ULTRASOUND - RIGHT UPPER QUADRANT REASON FOR VISIT: Female, 61 years old. Elevated liver enzymes. TECHNIQUE: Ultrasound evaluation of the right upper quadrant was performed with real-time and static mckeon-scale imaging. TECHNICAL QUALITY: Adequate. COMPARISON: None. FINDINGS: Liver: The liver measures 13.6 cm. There is increased echogenicity consistent with fatty infiltration. The bile ducts are within normal limits. There is hepatic color flow. The direction of portal flow is hepatopetal. There is no demonstrated mass lesion. Gallbladder: The patient is status post cholecystectomy. Common Bile Duct (C.B.D.): The common bile duct measures 5 mm. Pancreas: Normal size of the head, body and tail of the pancreas. There is normal echogenicity of the pancreas. There is no demonstrated pancreatic mass or cyst. Right Kidney: Normal size of the right kidney. The right kidney measures 10.5 cm. Normal renal cortex. There is a 1.1 x 0.9 cm simple cyst in the right kidney. There is a 3 mm nonobstructing right renal stone. There is no right hydronephrosis. US/Liver IMPRESSION: Fatty liver. No focal hepatic masses identified. 3 mm nonobstructing right renal stone. No hydronephrosis. Electronically Signed: Fidel Mukund, at 16:52 EDT Tel , Service support , CC: Deysi Sullivan NP Package Handler: Signed Deysi Sullivan Work Phone: Start: 05-30-2017 End: 05-30-2017 Surgery Visit Report Comments: See Note; NOTES: [facility] [address] [place] [address] OFFICE VISIT Date of Service: 05/30/17 MR#: [id number] Acct: [id number] Name: SANDER BISHOP Rep #: [id number] : 1955 Provider: Scotty Hanson MD Age/Sex: 61/F Location: [facility] Status: Signed Intake Vital Signs05/30/17 Height 5 ft 3 in 05/30/17 Weight: 165 lb Intake Visit Reasons: BILATERAL BREAST/BIRAD IV Material Manager Required: No Is patient in pain?: No Allergies No Known Allergies Allergy (Verified 05/30/17 08:24) Medications calcium carb-magnesium oxide-vit D3 400 mg-167 mg-133 unit tablet 1 tab PO QDAY ea 05/30/17 [History Confirmed 05/30/17] mecobalamin (vitamin B12) 5,000 mcg disintegrating tablet 5,000 mcg PO QDAY ea 05/30/17 [History Confirmed 05/30/17] vitamin B complex tablet 1 tab PO QDAY 05/30/17 [History Confirmed 05/30/17] PFSH Medical History Arthritis (Acute) Elevated liver enzymes (Acute) Abnormal mammogram (Acute) Surgical History S/P cholecystectomy (Acute) Family History Mother Heart disease Father Kidney disease Sister Breast cancer Social History Smoking Status: Never smoker second hand exposure: No alcohol intake: never substance use type: does not use caffeine: Yes what type of physical activity do you participate in: none frequency: does not exercise seatbelt use: always HPI HPI HPI: SANDER BISHOP, is a 61 F who presents to the office today for surgical consultation regarding an abnormal mammogram. The patient is referred by Deysi Cornelius NP and a written copy of my surgical consult recommendations will be returned to her. 61-year-old female. G0. Menarche age 14. No previous breast biopsies. Family history is notable for a sister in her late 30s who had breast cancer. The patient herself has not been performing routine self breast exams. But she has no particular complaints. As routine screening at the [facility] May 21, 2017 had bilateral screening mammography. This suggested 3 densely calcified nodules in the deep mid medial portion of the left breast consistent with calcified fibroadenomas. Of interest however was that there is a focus area of amorphous calcifications seen in the deep upper inner portion of the right breast BI-RADS Category 4 biopsy recommended. ROS General General: Yes weight change; no appetite, fatigue, colon cancer, breast cancer or weakness HEENT HEENT: No difficulty swallowing, eye injury, eye surgery, swollen glands or hoarseness Endo Endocrine: No thyroid disease, diabetes mellitus, thyroid cancer, Hair loss, heat intolerance or cold intolerance Skin Skin: No rash or changing moles Breast Breast: Yes abnormal mammogram and right breast lump; no left breast lump, nipple discharge, breast pain, abnormal US or breast enlargement Musc Musculoskeletal: Yes arthritis; no back problems, rheumatoid arthritis, gout or joint pain Cardio Cardiovascular: No pacemaker, heart disease, atrial fibrillation, high blood pressure, heart attack, heart stent, palpitations, shortness of breat with exertion, chest pain or murmur Psych Psychiatric: No depression, anxiety or hearing voices Resp Respiratory: No shortness of breath, No sleep apnea, Yes cough, No COPD, No asthma, No emphysema, No wheezing Gastro Gastrointestinal: No abdominal pain, No nausea or vomiting, No diarrhea, No constipation, No blood in stool, No acid reflux, No hemorrhoids, No ulcers, No gallbladder problem, No black,tarry stools Ramos Hematologic: No blood thinners, No blood disorders, No bleeding, No anemia, No blood clots Neuro Neurologic: No system reviewed and no additional complaints, except as docu, No as per HPI, No abnormal walking, No abnormal hearing, No abnormal movements, No abnormal speech, No behavioral changes, No burning sensations, No confusion, No seizure-like activity, No unsteadiness, No dizziness, No localized weakness, No frequent falls, No headache(s), No lack of coordination, No loss of vision, No memory loss, Yes numbness, No other visual disturbances, No radiating pain, No restless legs, No sensory deficit, No fainting, Yes tingling, No tremor(s), No weakness, No other Exam Chest Breast Palpation: No nipple discharge Other: Bilateral breasts are rather dense. I am not detecting any focal tenderness. No focal mass. No nipple discharge. No axillary adenopathy Cardio Heart Sounds: no murmurs Assessment AND Plan Problems 1. Abnormal mammogram of right breast R92.8 Plan I have reviewed the patient's mammograms and I concur that the very densely calcified densities on the left are consistent with a benign finding. The microcalcifications upper inner right breast are polymorphic though rather coarse. I am offering her a stereotactic needle core biopsy of this area. We have discussed the technique, benefits, risks, alternatives. No guarantees of success have been offered. She has had an opportunity to ask and have questions answered and we will schedule and proceed at her discretion. This will require that we schedule at [facility] for this procedure. We will try to expedite her care. I appreciate the opportunity of assisting with her surgical care Cc: MARIO Arroyo M.D., F.A.C.S. Coding Level of Care Code Off vis,new,level 1 Diagnoses Abnormal mammogram of right breast R92.8 05/30/17 0835 <Electronically signed by Scotty Hanson MD> Date Scotty Hanson MD Cosigner Signature: Date (if applicable) CC: Deysi Sullivan Start: 05-21-2017 End: 05-23-2017 SCREENING MAMM (CAD), BILAT Comments: See Note; NOTES: [facility] Imaging Services [address] [place] [address] SCREENING MAMM (CAD), BILAT MR#: [id number] Acct: [id number] Name: SANDER BISHOP Rep #: [id number] : 1955 F 61 From: Dean Jimenez MD PCP: Deysi Sullivan NP Status: REG CLI Study: SCREENING MAMM (CAD), BILAT Date of Exam: 05/21/17 Exam# [id number] Ordering Dr: Deysi Sullivan MAMMOGRAPHY - BILATERAL SCREENING REASON FOR EXAM: Female, 61 years old. Routine annual screening examination. PERTINENT HISTORY: Sister with breast cancer. TECHNIQUE: Digital bilateral breast marek (3D mammographic acquisition) in the CC and MLO projections. 2-D mediolateral oblique (MLO) and craniocaudad (CC) views of both breasts were obtained. CAD: Full Field Digital Mammography with Computer Added Detection was performed. COMPARISON: None. Baseline examination. FINDINGS: Breast Composition: The breasts are heterogeneously dense, which may obscure small masses. There are 3 densely calcified nodules in the deep mid medial portion of the left breast incomplete with calcified fibroadenomas. A focus of amorphous calcifications are seen in the deep upper medial portion of the right breast. A biopsy is recommended for further evaluation. No other significant abnormalities are identified. HPBI/SCREENING MAMM (CAD), BILAT IMPRESSION: Suspicious calcifications in the deep medial portion of the right breast as described. A biopsy is recommended. ASSESSMENT CATEGORY: BIRADS Category 4: Suspicious - Biopsy Should Be Considered. A letter regarding these results will be sent to the patient by the facility within 30 days. Approximately 10% of breast cancers are not detected by mammography. A normal mammogram should not delay biopsy of a clinically suspicious abnormality. [id number] Electronically Signed: Dean Jimenez MD at 10:03 EDT Tel [phone], Service support , CC: Deysi Sullivan NP Package Handler: Signed Deysi Sullivan Work Phone: Plan of Treatment Date Care Activity Detail Author Start: 06-13-2019 Alpha-fetoprotein serum [id number] (48009) [facility] Work Phone: Start: 06-13-2019 Comprehensive metabolic panel Metabolic Panel, Comprehensive (09811) [facility] Work Phone: Start: 06-21-2018 Lactate dehydrogenase ldh LDH (LD) (LACTATE DEHYDROGENASE) (14289) [facility] Work Phone: Start: 05-10-2017 Blood count complete auto&auto difrntl wbc CBC, Platelets & Auto Diff (70396) [facility] Work Phone: Start: 05-10-2017 Lipid panel Lipid Panel (30457) [facility] Work Phone: Start: 05-10-2017 Comprehensive metabolic panel Metabolic Panel, [facility] (15893) [facility] Work Phone: [facility] Work Phone: [facility] Work Phone: [facility] Work Phone[facility] Work Phone[facility] Work Phone: [facility] Work Phone: Payers Date Payer Category Payer Unknown [id number] 1955 Unknown [id number] 1955 Unknown [id number] 1955 Unknown [id number] 1955 Unknown [id number] [id number] Medicare [id number] Unknown [place] BC/BS Family History No Family History Records FoundUnknown Family Member Name Dates Details Father Comments:kidney Status:Active Mother Comments:cardiac Status:Active Sister 1 Comments:breast ca Status:Active Unknown Family Member Name Dates Details Father Comments:kidney Status:Active Mother Comments:cardiac Status:Active Sister 1 Comments:breast ca Status:Active Instructions Name Dates Details Nonsmoker : How to access he alth information online Indication:Nonsmoker Nonsmoker : How to access he alth information online - Detail Indication:Nonsmoker Abnormal mammogram : Patient Instructions Indication:Abnormal mammogram Nonsmoker : Patient Instruct ions Indication:Nonsmoker BMI 27.0-27.9,adult : How to access health information online Indication:BMI 27.0-27.9,adult BMI 27.0-27.9,adult : How to access health information online - Detail Indication:BMI 27.0-27.9,adult BMI 27.0-27.9,adult : Patien t Instructions Indication:BMI 27.0-27.9,adult Encounter for screening for malignant neoplasm of colon (Renamed from Special screening for malignant neoplasms, colon) : How to access health information online Indication:Encounter for screening for malignant neoplasm of colon (Renamed from Special screening for malignant neoplasms, colon) Encounter for general adult medical examination w/o abnormal findings (Renamed from Encounter for general adult medical examination without abnormal findings) : How to access health information online - Detail Indication:Encounter for general adult medical examination w/o abnormal findings (Renamed from Encounter for general adult medical examination without abnormal findings) Encounter for general adult medical examination w/o abnormal findings (Renamed from Encounter for general adult medical examination without abnormal findings) : Patient Instructions Indication:Encounter for general adult medical examination w/o abnormal findings (Renamed from Encounter for general adult medical examination without abnormal findings) Name Dates Details Nonsmoker : How to access he alth information online Indication:Nonsmoker Nonsmoker : How to access he alth information online - Detail Indication:Nonsmoker Abnormal mammogram : Patient Instructions Indication:Abnormal mammogram Nonsmoker : Patient Instruct ions Indication:Nonsmoker BMI 27.0-27.9,adult : How to access health information online Indication:BMI 27.0-27.9,adult BMI 27.0-27.9,adult : How to access health information online - Detail Indication:BMI 27.0-27.9,adult BMI 27.0-27.9,adult : Patien t Instructions Indication:BMI 27.0-27.9,adult Encounter for screening for malignant neoplasm of colon (Renamed from Special screening for malignant neoplasms, colon) : How to access health information online Indication:Encounter for screening for malignant neoplasm of colon (Renamed from Special screening for malignant neoplasms, colon) Encounter for general adult medical examination w/o abnormal findings (Renamed from Encounter for general adult medical examination without abnormal findings) : How to access health information online - Detail Indication:Encounter for general adult medical examination w/o abnormal findings (Renamed from Encounter for general adult medical examination without abnormal findings) Encounter for general adult medical examination w/o abnormal findings (Renamed from Encounter for general adult medical examination without abnormal findings) : Patient Instructions Indication:Encounter for general adult medical examination w/o abnormal findings (Renamed from Encounter for general adult medical examination without abnormal findings) Summary Purpose Advance Directives No Advanced Directives Records FoundNo Advanced Directives Records FoundNo Advanced Directives Records Found Additional Source Comments INFORMATION SOURCE (unrecogn ized section and content) DATE CREATED AUTHOR AUTHOR'S ORGANIZ ATION 10/24/2019 [facility] DATE CREATED AUTHOR AUTHOR'S ORGANIZ ATION 11/03/2019 [facility] FOR RECORDS PERTAINING TO PATIENTS WHO ARE OR HAVE BEEN ENROLLED IN A CHEMICAL DEPENDENCY/SUBSTANCEABUSE PROGRAM, SOME INFORMATION MAY BE OMITTED. This clinical summary was aggregated from multiple sources. Caution should be exercised in using it in the provision of clinical care. This summary normalizes information from multiple sources, and as a consequence, information in this document may materially change the coding, format and clinical context of patient data. In addition, data may be omitted in some cases. CLINICAL DECISIONS SHOULD BE BASED ON THE PRIMARY CLINICAL RECORDS. [facility] [employer] provides no warranty or guarantee of the accuracy or completeness of information in this document.
[2023-04-08 10:05] LABS: Absolute Lymphocyte Count 2.44 X10^3/uL (0.83-4.51); Absolute Neutrophil Count 3.2 X10^3/uL (2.0-7.7); Basophil# 0.03 X10^3/uL; Basophil% 0.5 % (0-1); Eosinophil# 0.08 X10^3/uL; Eosinophils% 1.2 % (0-5); Hematocrit 39.7 % (37-47); Hemoglobin 13.8 g/dL (12.0-15.0); Lymphocyte # 2.44 X10^3/ul (0.83-4.51); Lymphocyte % 37.9 % (19-41); Mean Corp Hgb Conc 34.8 g/dL (32-36); Mean Corpuscular Hgb 31.7 pg (27.0-32.0); Mean Corpuscular Volume 91.1 fL (81-99); Mean Platelet Vol. 10.1 fl (6.2-12.0); Monocyte# 0.69 X10^3/uL; Monocyte% 10.7 % (0-10); NRBC Flagged by Analyzer 0 % (0-5); Neutrophil # 3.19 X10^3/uL (2.7-7.7); Neutrophil % 49.5 % (47-70); Platelet Count 248 K/mm3 (150-450); RBC Distribution Width CV 11.9 % (11.6-14.6); RBC Distribution Width SD 39.9 fl (35.1-43.9); Red Blood Count 4.36 M/mm3 (4.2-5.4); White Blood Count 6.4 K/mm3 (4.4-11.0)
[2023-04-08 10:44] LABS: ALB/GLOB Ratio 0.9 RATIO (0.9-2.4); AST(SGOT) 19 U/L (15-37); Alanine Aminotransfer ALT/SGPT 31 U/L (13-56); Albumin, Serum 3.6 g/dL (3.2-5.0); Alkaline Phosphatase 55 U/L (45-117); Anion Gap 7 (5-15); BUN 14 mg/dL (7-18); BUN/Creat Ratio 20.3 RATIO (10-20); Calcium,Total 8.9 mg/dL (8.5-10.1); Chloride 99 mmol/L (98-107); Creatinine, Serum 0.69 mg/dL (0.55-1.02); EST Glomerular Filtration Rate 90 mL/min (>60); Est Glom Filt Rate - Afr Amer 109 mL/min (>60); Globulin 3.8 g/dL (2.2-4.2); Glucose 107 mg/dL (74-106); Potassium 3.6 mmol/L (3.5-5.1); Protein, Total 7.4 g/dL (6.4-8.2); Sodium Level 133 mmol/L (136-145); T4 Free Direct 1.16 ng/dL (0.76-1.46); Thyroid Stim Hormone (TSH) 4.79 uIU/mL (0.358-3.74)
[2023-04-08 11:09] LABS: Microalbumin,Random Urine < 5.0 mg/L (NO RANGE EST.)
== END | disposition home or self-care (01) ==
LOC: MFPLAB 09:28
PROVIDERS: PCP Family Medicine; Visit Provider Family Medicine
DX: K76.0 Fatty (change of) liver, not elsewhere classified (principal); I10 Essential (primary) hypertension; E03.9 Hypothyroidism, unspecified
CPT/HCPCS: 36415; 80053; 82043; 82570; 84439; 84443; 85025

== ENCOUNTER → 2023-10-28 | Outpatient (CLI) | payer MEDICARE, SELFPAY ==
[2023-10-28 12:19] LABS: Anion Gap 5 (5-15); BUN 10 mg/dL (7-18); BUN/Creat Ratio 13.8 RATIO (10-20); Chloride 102 mmol/L (98-107); Creatinine, Serum 0.72 mg/dL (0.55-1.02); EST Glomerular Filtration Rate 85 mL/min (>60); Est Glom Filt Rate - Afr Amer 103 mL/min (>60); Glucose 94 mg/dL (74-106); Potassium 3.5 mmol/L (3.5-5.1); Sodium Level 137 mmol/L (136-145)
== END | disposition home or self-care (01) ==
LOC: MFPLAB 10:05
PROVIDERS: PCP Family Medicine; Visit Provider Family Medicine
DX: I10 Essential (primary) hypertension (principal)
CPT/HCPCS: 36415; 80048

== ENCOUNTER → 2024-05-01 | Outpatient (CLI) | payer MEDICARE, SELFPAY ==
--- NOTE | 2024-05-01 08:52 | BI_ITS ---
PROCEDURE: SCRN MAMM (CAD)W/JEZ BILAT REASON FOR EXAM: F, Age 68 y/o, no family history. Prior right stereotactic breast biopsies. TECHNIQUE: Bilateral screening digital breast tomosynthesis with 2D and 3D images. Computer aided detection. COMPARISON: Prior exam(s) dating back to June 16, 2022.. FINDINGS: The breasts are heterogeneously dense which may obscure small masses. Stable densely calcified nodules in the central medial aspect of the left breast. Stable calcifications in the deep slightly upper medial aspect of the right breast. 2 tissue clip markers are seen within it. No suspicious masses, areas of developing architectural distortion, or suspicious calcifications. BI/SCRN MAMM (CAD)W/JEZ BILAT IMPRESSION: BI-RADS 2: BENIGN. RECOMMEND ANNUAL MAMMOGRAPHIC SCREENING. Follow-up code: Routine Follow-up The patient will be notified of the results by letter. Reading Location: [place] [address]
== END | disposition home or self-care (01) ==
LOC: OPBI 08:50
PROVIDERS: PCP Family Medicine; Referring Provider Family Medicine; Visit Provider Family Medicine
DX: Z12.31 Encounter for screening mammogram for malignant neoplasm of breast (principal)
CPT/HCPCS: 77063; 77067

== ENCOUNTER → 2024-06-05 | Outpatient (CLI) | payer MEDICARE, SELFPAY ==
[2024-06-05 16:11] LABS: Hematocrit 37.6 % (37-47); Mean Corp Hgb Conc 34.6 g/dL (32-36); Mean Corpuscular Hgb 32.5 pg (27.0-32.0); Mean Platelet Vol. 10.2 fl (6.2-12.0); Platelet Count 253 K/mm3 (150-450); RBC Distribution Width CV 12.8 % (11.6-14.6); RBC Distribution Width SD 44.1 fl (35.1-43.9); White Blood Count 6.2 K/mm3 (4.4-11.0)
[2024-06-05 16:59] LABS: Microalbumin,Random Urine < 12.0 mg/L (NO RANGE EST.); Microalbumin:Creatinine Ratio UNABLE TO CALCULATE mg/g CRE
[2024-06-05 17:00] LABS: ALB/GLOB Ratio 1.5 RATIO (0.9-2.4); AST(SGOT) 21 U/L (<=31); Alanine Aminotransfer ALT/SGPT 21 U/L (<=34); Alkaline Phosphatase 43 U/L (35-104); Anion Gap 12 (5-15); BUN 10 mg/dL (4-19); BUN/Creat Ratio 13.9 RATIO (10-20); Calcium,Total 9.2 mg/dL (7.6-11.0); Carbon Dioxide 24.2 mmol/L (21.0-32.0); Chloride 97 mmol/L (98-108); Creatinine, Serum 0.75 mg/dL (0.70-1.20); EST Glomerular Filtration Rate 86 (>60); Globulin 2.8 g/dL (2.2-4.2); Glucose 91 mg/dL (70-99); Potassium 3.8 mmol/L (3.3-5.1); Protein, Total 6.8 g/dL (5.9-8.4); Sodium Level 133 mmol/L (133-145); Total Bilirubin 0.64 mg/dL (0.00-1.30)
[2024-06-05 22:00] LABS: Hemoglobin A1c 6.3 % (<=5.6)
== END | disposition home or self-care (01) ==
LOC: MFPLAB 09:28
PROVIDERS: PCP Family Medicine; Referring Provider Family Medicine; Visit Provider Family Medicine
DX: I10 Essential (primary) hypertension (principal); E03.9 Hypothyroidism, unspecified; K76.0 Fatty (change of) liver, not elsewhere classified; R73.02 Impaired glucose tolerance (oral)
CPT/HCPCS: 36415; 80053; 82043; 82570; 83036; 84443; 85027

== ENCOUNTER → 2024-10-30 | Outpatient (CLI) | payer MEDICARE, SELFPAY ==
[2024-10-30 15:29] LABS: Creatinine, Urine (random) 25.40 mg/dL (28.00-217.00); Microalbumin,Random Urine < 12.0 mg/L (<20 mg/L)
[2024-10-30 15:34] LABS: AST(SGOT) 22 U/L (<=31); Alanine Aminotransfer ALT/SGPT 26 U/L (<=34); Albumin, Serum 4.2 g/dL (3.4-4.8); Alkaline Phosphatase 45 U/L (35-104); Anion Gap 12 (5-15); BUN 15 mg/dL (4-19); BUN/Creat Ratio 23.8 RATIO (10-20); Calcium,Total 9.4 mg/dL (7.6-11.0); Carbon Dioxide 24.6 mmol/L (21.0-32.0); Chloride 97 mmol/L (98-108); Globulin 2.6 g/dL (2.2-4.2); Glucose 92 mg/dL (70-99); Potassium 3.9 mmol/L (3.3-5.1)
== END | disposition home or self-care (01) ==
LOC: MFPLAB 11:49
PROVIDERS: PCP Family Medicine; Referring Provider Family Medicine; Visit Provider Family Medicine
DX: I10 Essential (primary) hypertension (principal); E03.9 Hypothyroidism, unspecified
CPT/HCPCS: 36415; 80053; 82043; 82570; 84439; 84443